=== PATIENT | female | born 1980 | race Caucasian/White ===

== ENCOUNTER → 2018-10-01 10:15 | Outpatient (CLI) | payer OTHER, SELFPAY ==
[2018-10-01 09:36] VITALS: BMI 43.3
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
[2018-10-01 12:25] LABS: Absolute Lymphocyte Count 2.67 X10^3/ul (0.83-4.51); Absolute Neutrophil Count 4.6 X10^3/uL (2.0-7.7); Basophil# 0.02 X10^3/uL; Basophil% 0.3 % (0-1); Eosinophil# 0.13 X10^3/uL; Eosinophils% 1.6 % (0-5); Hematocrit 40.3 % (37-47); Hemoglobin 12.5 g/dl (12.0-15.0); Lymphocyte # 2.67 X10^3/ul (4.0); Lymphocyte % 33.8 % (19-41); Mean Corpuscular Hgb 27.8 pg (27.0-32.0); Mean Corpuscular Volume 89.8 fL (81-99); Mean Platelet Vol. 9.6 fl (6.2-12.0); Monocyte# 0.44 X10^3/uL; Monocyte% 5.6 % (0-10); Neutrophil # 4.64 X10^3/uL (2.7-7.7); Neutrophil % 58.6 % (47-70); Platelet Count 326 K/mm3 (150-450); RBC Distribution Width CV 14.3 % (11.6-14.6); RBC Distribution Width SD 46.6 fl (35.1-43.9); Red Blood Count 4.49 M/mm3 (4.2-5.4); White Blood Count 7.9 K/mm3 (4.4-11.0)
[2018-10-01 12:26] LABS: POSITIVE COUNT NO; POSITIVE DIFFERENTIAL NO; POSITIVE MORPHOLOGY NO
[2018-10-01 12:39] LABS: Albumin, Serum 3.9 g/dL (3.2-5.0); BUN 10 mg/dL (7-18); BUN/Creat Ratio 13.9 RATIO (10-20); Creatinine, Serum 0.72 mg/dL (0.55-1.02); EST Glomerular Filtration Rate 97 mL/min (>60); Est Glom Filt Rate - Afr Amer 117 mL/min (>60); Glucose 105 mg/dL (74-106); Protein, Total 7.4 g/dL (6.4-8.2)
[2018-10-01 12:40] LABS: ALB/GLOB Ratio 1.1 RATIO (0.9-2.4); AST(SGOT) 19 U/L (15-37); Alanine Aminotransfer ALT/SGPT 27 U/L (13-56); Alkaline Phosphatase 72 U/L (45-117); Anion Gap 6 (5-15); Calcium,Total 8.8 mg/dL (8.5-10.1); Chloride 107 mmol/L (98-107); Globulin 3.5 g/dL (2.2-4.2); Potassium 4.5 mmol/L (3.5-5.1); Sodium Level 139 mmol/L (136-145)
[2018-10-01 12:44] LABS: Hemoglobin A1c 6.7 % (4.2-6.3)
[2018-10-01 12:58] LABS: Microalbumin,Random Urine 12.1 mg/L (NO RANGE EST.); Microalbumin:Creatinine Ratio 9.8 mg/g CRE (<30 mg/g CRE)
== END ==
PROVIDERS: Family Provider Internal Medicine; PCP Internal Medicine; Referring Provider Internal Medicine; Visit Provider Internal Medicine
DX: M75.102 Unspecified rotator cuff tear or rupture of left shoulder, not specified as traumatic (principal); E11.9 Type 2 diabetes mellitus without complications
CPT/HCPCS: 36415; 73030; 80053; 82043; 82570; 83036; 85025

== ENCOUNTER → 2018-11-19 15:00 | Outpatient (CLI) | payer OTHER, SELFPAY ==
[2018-11-01 10:59] VITALS: BMI 43.3
[2018-11-24 12:19] LABS: HPV Reflexed? NOT INDICATED
== END ==
PROVIDERS: Family Provider Internal Medicine; PCP Internal Medicine; Referring Provider Obstetrics & Gynecology; Visit Provider Obstetrics & Gynecology
DX: Z12.4 Encounter for screening for malignant neoplasm of cervix (principal)
CPT/HCPCS: 88175; G0145

== ENCOUNTER → 2018-11-25 15:33 | Outpatient (CLI) | payer OTHER, SELFPAY ==
[2018-11-01 10:59] VITALS: BMI 43.3
[2018-11-25 18:05] LABS: hCG Titer Quant., Serum 5511 mIU/mL (1-3)
== END ==
PROVIDERS: Family Provider Internal Medicine; PCP Internal Medicine; Referring Provider Obstetrics & Gynecology; Visit Provider Obstetrics & Gynecology
DX: N91.2 Amenorrhea, unspecified (principal)
CPT/HCPCS: 36415; 84702

== ENCOUNTER → 2018-12-06 | Outpatient (CLI) | payer OTHER, SELFPAY ==
[2018-11-01 10:59] VITALS: BMI 43.3
[2018-12-06 12:32] LABS: Hematocrit 38.7 % (37-47); Hemoglobin 12.5 g/dl (12.0-15.0); Mean Corp Hgb Conc 32.3 g/gl (32-36); Mean Corpuscular Hgb 28.3 pg (27.0-32.0); Mean Corpuscular Volume 87.6 fL (81-99); Mean Platelet Vol. 9.3 fl (6.2-12.0); Platelet Count 301 K/mm3 (150-450); RBC Distribution Width CV 15.2 % (11.6-14.6); RBC Distribution Width SD 48.2 fl (35.1-43.9); Red Blood Count 4.42 M/mm3 (4.2-5.4)
[2018-12-06 12:47] LABS: Scan Indicated on CBC? Y/N NO
[2018-12-06 13:02] LABS: ALB/GLOB Ratio 0.9 RATIO (0.9-2.4); AST(SGOT) 14 U/L (15-37); Alanine Aminotransfer ALT/SGPT 26 U/L (13-56); Albumin, Serum 3.5 g/dL (3.2-5.0); Alkaline Phosphatase 65 U/L (45-117); Anion Gap 9 (5-15); BUN 11 mg/dL (7-18); BUN/Creat Ratio 16.4 RATIO (10-20); Calcium,Total 9.4 mg/dL (8.5-10.1); Chloride 104 mmol/L (98-107); Creatinine, Serum 0.67 mg/dL (0.55-1.02); EST Glomerular Filtration Rate 105 mL/min (>60); Est Glom Filt Rate - Afr Amer 127 mL/min (>60); Globulin 3.9 g/dL (2.2-4.2); Glucose 127 mg/dL (74-106); Potassium 4.1 mmol/L (3.5-5.1); Protein, Total 7.4 g/dL (6.4-8.2); Sodium Level 137 mmol/L (136-145)
[2018-12-06 14:43] LABS: HIV - WCH Non-Reactive (Nonreactive); Rubella IgG > 500.0 IU/mL
[2018-12-07 09:43] LABS: HEPATITIS B SURFACE AG Negative (Negative)
[2018-12-08 16:07] LABS: Chlamydia By Nucleic Acid AMP Negative (Negative)
[2018-12-09 08:35] LABS: Gonococcus By Nucleic Acid AMP Negative (Negative)
[2018-12-10 03:31] LABS: Rapid Plasmin Reagin (RPR) NONREACTIVE (NONREACTIVE)
== END | disposition home or self-care (01) ==
PROVIDERS: Family Provider Internal Medicine; PCP Internal Medicine; Referring Provider Obstetrics & Gynecology; Visit Provider Obstetrics & Gynecology
DX: O09.511 Supervision of elderly primigravida, first trimester (principal); Z11.3 Encounter for screening for infections with a predominantly sexual mode of transmission; Z3A.00 Weeks of gestation of pregnancy not specified
CPT/HCPCS: 36415; 80053; 85027; 86592; 86703; 86762; 86850; 86900; 87086; 87088; 87340; 87491; 87591

== ENCOUNTER → 2018-12-20 08:36 | Outpatient (CLI) | payer OTHER, SELFPAY ==
[2018-12-14 09:45] VITALS: BMI 43.3
[2018-12-20 09:47] LABS: 24 Hour Urine Protein 166.6 mg/24HR (<150 MG/24HR); 24HR. UA Prot. Total Volume 2525 mL; Urine Protein (24 Hour) 6.6 mg/dL (<11.9)
== END ==
PROVIDERS: Family Provider Internal Medicine; PCP Internal Medicine; Referring Provider Obstetrics & Gynecology; Visit Provider Obstetrics & Gynecology
DX: E11.65 Type 2 diabetes mellitus with hyperglycemia (principal); O09.91 Supervision of high risk pregnancy, unspecified, first trimester; O09.521 Supervision of elderly multigravida, first trimester; Z3A.00 Weeks of gestation of pregnancy not specified
CPT/HCPCS: 84156

== ENCOUNTER 2018-12-29 07:58 | Outpatient (RCR) | payer OTHER, SELFPAY ==
[2018-11-01 10:59] VITALS: BMI 43.3
[2018-12-14 09:45] VITALS: BMI 43.3
== END 2019-01-02 23:59 ==
LOC: DC 07:58
PROVIDERS: Family Provider Internal Medicine; PCP Internal Medicine; Visit Provider Obstetrics & Gynecology
DX: O24.111 Pre-existing type 2 diabetes mellitus, in pregnancy, first trimester (principal); E11.65 Type 2 diabetes mellitus with hyperglycemia; Z71.3 Dietary counseling and surveillance
CPT/HCPCS: G0108

== ENCOUNTER → 2018-12-29 11:21 | Outpatient (CLI) | payer OTHER, SELFPAY ==
[2018-12-14 09:45] VITALS: BMI 43.3
[2018-12-29 12:31] LABS: T4 Free Direct 1.12 ng/dL (0.76-1.46); Thyroid Stim Hormone (TSH) 1.58 uIU/mL (0.358-3.74)
== END ==
PROVIDERS: Family Provider Internal Medicine; PCP Internal Medicine; Referring Provider Internal Medicine Endocrinology, Diabetes & Metabolism; Visit Provider Internal Medicine Endocrinology, Diabetes & Metabolism
DX: E11.9 Type 2 diabetes mellitus without complications (principal)
CPT/HCPCS: 36415; 84439; 84443

== ENCOUNTER → 2019-01-21 17:21 | Outpatient (CLI) | payer OTHER, SELFPAY ==
[2018-12-14 09:45] VITALS: BMI 43.3
== END ==
PROVIDERS: Family Provider Internal Medicine; PCP Internal Medicine; Referring Provider Advanced Practice Midwife; Visit Provider Advanced Practice Midwife
DX: O26.851 Spotting complicating pregnancy, first trimester (principal); Z3A.00 Weeks of gestation of pregnancy not specified
CPT/HCPCS: 87086; 87088

== ENCOUNTER 2019-02-01 11:30 | Outpatient (RCR) | payer OTHER, SELFPAY ==
[2018-12-14 09:45] VITALS: BMI 43.3
== END 2019-02-02 23:59 ==
LOC: DC 11:30
PROVIDERS: Family Provider Internal Medicine; PCP Internal Medicine; Referring Provider Obstetrics & Gynecology; Visit Provider Obstetrics & Gynecology
DX: E11.65 Type 2 diabetes mellitus with hyperglycemia (principal); O24.111 Pre-existing type 2 diabetes mellitus, in pregnancy, first trimester; Z71.3 Dietary counseling and surveillance
CPT/HCPCS: 87086; 87088; 97802; 97803; G0108

== ENCOUNTER → 2019-02-08 10:03 | Outpatient (CLI) | payer OTHER, SELFPAY ==
[2019-01-31 09:24] VITALS: BMI 43.3
[2019-02-10 09:07] LABS: AFP MoM Value 1.16 (.); AFP Value-EIA 20.7 ng/mL (.); Comment Report (.); DIA MoM Value 0.49 (.); DIA Value-EIA 58.79 pg/mL (.); DSR (By Age) 163 (.); DSR (Second Trimester) 2682 (.); Gestat. Age Based On As provided (.); Gestational Age 16.2 WEEKS (.); Insulin Dep Diabetes Yes (.); Maternal Age At EDD 37.6 yr (.); hCG MoM 0.61 (.); hCG Value 16572 mIU/mL (.)
== END ==
PROVIDERS: Family Provider Internal Medicine; PCP Internal Medicine; Referring Provider Obstetrics & Gynecology; Visit Provider Obstetrics & Gynecology
DX: O09.522 Supervision of elderly multigravida, second trimester (principal); Z3A.16 16 weeks gestation of pregnancy; O24.312 Unspecified pre-existing diabetes mellitus in pregnancy, second trimester; E11.9 Type 2 diabetes mellitus without complications
CPT/HCPCS: 36415; 82105; 82677; 84702

== ENCOUNTER 2019-03-03 13:30 | Outpatient (RCR) | payer OTHER, SELFPAY ==
[2019-01-31 09:24] VITALS: BMI 43.3
== END 2019-03-05 23:59 ==
LOC: DC 13:30
PROVIDERS: Family Provider Internal Medicine; PCP Internal Medicine; Referring Provider Obstetrics & Gynecology; Visit Provider Obstetrics & Gynecology
DX: E11.65 Type 2 diabetes mellitus with hyperglycemia (principal); O24.111 Pre-existing type 2 diabetes mellitus, in pregnancy, first trimester
CPT/HCPCS: 97803

== ENCOUNTER 2019-03-31 14:00 | Outpatient (RCR) | payer OTHER, SELFPAY ==
[2018-10-01 09:36] VITALS: BMI 43.3
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
--- NOTE | 2018-11-16 08:18 | HP.PTREVAL ---
Anni Castillo MD, It has been my pleasure to treat EYAL ORNELAS over the last 11 visits for L rot cuff repair. Please see the progress note below for an update on the physical therapy plan of care! Subjective: Pt reports she is getting better, but needs more treatment for strength and ROM Objective/Function: L shoulder pain 2-09/12. L shoulder ROM: flex= 115, abd= 97, ER= 45, IR minimally limited. L shoulder MMT: Grossly 4/5 throughout. Pt is progressing well toward Rx goals, but continues to lack strength and ROM Plan Plan: Attempt to get 10 more visits to improve L shoulder ROM and strength Goals Goal 1:: Decrease L shoulder pain x 50% to aid with IADL's Goal Time Frame: 4-6 Weeks Goal Progress: Progressing Goal 2:: Increase L shoulder flex and abd ROM x 40 degrees to aid with overhead activity Goal Time Frame: 4-6 Weeks Goal Progress: Progressing Goal 3:: Increase L shoulder strength x 1 grade to aid with work requirements Goal Time Frame: 4-6 Weeks Goal Progress: Progressing Goal 4:: I with HEP Goal Time Frame: 4-6 Weeks Goal Progress: Progressing Anticipated Interventions Patient/Client Instruction: Educate patient on: Condition, Plan of Care For the Purpose of:: To improve self management Therapeutic Exercise to Include: Strength training, Endurance training, Flexibilty training, Passive ROM, Active ROM, Scapular Strength/Stabilization For the Purpose of:: To decrease pain, To increase ROM, To improve muscle performance and motor function Cryotherapy (ice pack, ice massage): Yes For the Purpose of:: To decrease pain Please do not hesitate to contact me at [phone] by phone or if you have questions or concerns regarding this new plan of care! Sincerely, Sergey Miranda, PT, ATC
--- NOTE | 2019-01-05 10:47 | HP.PTREVAL_ITS ---
Anni Castillo MD, It has been my pleasure to treat EYAL ORNELAS over the last 21 visits for L rot cuff repair (05/18/18). Please see the progress note below for an update on the physical therapy plan of care! Subjective: Pt reports mild pain this date. Pt still c/o being very limited with overhead activity Objective/Function: L shoulder pain: 3/10. L shoulder ROM: flex= 107, abd= 100, ER= 45, IR Min limited. L shoulder MMT: 4/5 throughout and painful. Pt is still very limited with strength and ROM at this timw Plan Plan: Attempt to get 12 more pt visits to focus on functional strength and ROM Goals Goal 1:: Decrease L shoulder pain x 50% to aid with IADL's Goal Time Frame: 4-6 Weeks Goal Progress: Progressing Goal 2:: Increase L shoulder flex and abd ROM x 40 degrees to aid with overhead activity Goal Time Frame: 4-6 Weeks Goal Progress: Progressing Goal 3:: Increase L shoulder strength x 1 grade to aid with work requirements Goal Time Frame: 4-6 Weeks Goal Progress: Progressing Goal 4:: I with HEP Goal Time Frame: 4-6 Weeks Goal Progress: Progressing Anticipated Interventions Patient/Client Instruction: Educate patient on: Condition, Plan of Care For the Purpose of:: To improve self management Therapeutic Exercise to Include: Strength training, Endurance training, Flexibilty training, Passive ROM, Active ROM, Scapular Strength/Stabilization For the Purpose of:: To decrease pain, To increase ROM, To improve muscle pe rformance and motor function Cryotherapy (ice pack, ice massage): Yes For the Purpose of:: To decrease pain Please do not hesitate to contact me at [phone] by phone or if you have questions or concerns regarding this new plan of care! Sincerely, Sergey Miranda, PT, ATC
--- NOTE | 2019-03-09 08:04 | HP.PTREVAL ---
Anni Castillo MD, It has been my pleasure to treat EYAL ORNELAS over the last 32 visits for L rot cuff repair (05/18/18). Please see the progress note below for an update on the physical therapy plan of care! Subjective: Pt reports she is sore today from performing some home repairs over the weekend Objective/Function: L shoulder pain 3/10. L shoulder ROM: flex= 120, abd= 100, ER= 50, IR WNL. L shoulder MMT: ER= 4/5, all other measurements 4+/5 in available range. Pt is progressing well with strength, would benefit with more skilled PT to focus on ROM Plan Plan: Attempt to get 12 more PT visits to focus on ROM Goals Goal 1:: Decrease L shoulder pain x 50% to aid with IADL's Goal Time Frame: 4-6 Weeks Goal Progress: Progressing Goal 2:: Increase L shoulder flex and abd ROM x 40 degrees to aid with overhead activity Goal Time Frame: 4-6 Weeks Goal Progress: Progressing Goal 3:: Increase L shoulder strength x 1 grade to aid with work requirements Goal Time Frame: 4-6 Weeks Goal Progress: Progressing Goal 4:: I with HEP Goal Time Frame: 4-6 Weeks Goal Progress: Progressing Anticipated Interventions Patient/Client Instruction: Educate patient on: Condition, Plan of Care For the Purpose of:: To improve self management Therapeutic Exercise to Include: Strength training, Endurance training, Flexibilty training, Passive ROM, Active ROM, Scapular Strength/Stabilization For the Purpose of:: To decrease pain, To increase ROM, To improve muscle performance and motor function Cryotherapy (ice pack, ice massage): Yes For the Purpose of:: To decrease pain Please do not hesitate to contact me at [phone] by phone or if you have questions or concerns regarding this new plan of care! Sincerely, Sergey Miranda, PT, ATC
== END 2019-03-31 19:00 | disposition home or self-care (01) ==
LOC: PT 14:00
PROVIDERS: Family Provider Internal Medicine; PCP Internal Medicine; Referring Provider Internal Medicine; Visit Provider Internal Medicine
DX: M75.100 Unspecified rotator cuff tear or rupture of unspecified shoulder, not specified as traumatic (principal)
CPT/HCPCS: 97110; 97113; 97140; 97161; 97530

== ENCOUNTER → 2019-04-04 15:47 | Outpatient (CLI) | payer OTHER, SELFPAY ==
[2019-01-31 09:24] VITALS: BMI 43.3
[2019-04-04 17:19] LABS: Hematocrit 33.8 % (37-47); Hemoglobin 10.8 g/dL (12.0-15.0); Mean Corpuscular Volume 90.9 fL (81-99); Mean Platelet Vol. 9.1 fl (6.2-12.0); Platelet Count 322 K/mm3 (150-450); RBC Distribution Width CV 14.8 % (11.6-14.6); RBC Distribution Width SD 48.6 fl (35.1-43.9); Red Blood Count 3.72 M/mm3 (4.2-5.4)
[2019-04-04 17:43] LABS: ALB/GLOB Ratio 0.6 RATIO (0.9-2.4); AST(SGOT) 22 U/L (15-37); Alanine Aminotransfer ALT/SGPT 19 U/L (13-56); Albumin, Serum 2.7 g/dL (3.2-5.0); Alkaline Phosphatase 64 U/L (45-117); Anion Gap 7 (5-15); BUN 8 mg/dL (7-18); BUN/Creat Ratio 13.5 RATIO (10-20); Calcium,Total 9.3 mg/dL (8.5-10.1); Chloride 106 mmol/L (98-107); Creatinine, Serum 0.59 mg/dL (0.55-1.02); EST Glomerular Filtration Rate 121 mL/min (>60); Est Glom Filt Rate - Afr Amer 146 mL/min (>60); Globulin 4.2 g/dL (2.2-4.2); Glucose 233 mg/dL (74-106); Potassium 3.7 mmol/L (3.5-5.1); Protein, Total 6.9 g/dL (6.4-8.2); Protein, Urine (Random) 14.7 mg/dL (<11.9); Protein:Creat Ratio 209 mg/g CRE (0-200); Sodium Level 136 mmol/L (136-145)
== END ==
PROVIDERS: Family Provider Internal Medicine; PCP Internal Medicine; Referring Provider Obstetrics & Gynecology; Visit Provider Obstetrics & Gynecology
DX: O24.311 Unspecified pre-existing diabetes mellitus in pregnancy, first trimester (principal); Z3A.24 24 weeks gestation of pregnancy
CPT/HCPCS: 36415; 80053; 82570; 84156; 85027

== ENCOUNTER 2019-04-06 14:53 | Outpatient (RCR) | payer OTHER, SELFPAY ==
[2019-01-31 09:24] VITALS: BMI 43.3
== END 2019-05-05 23:59 ==
LOC: DC 14:53
PROVIDERS: Family Provider Internal Medicine; PCP Internal Medicine; Referring Provider Obstetrics & Gynecology; Visit Provider Obstetrics & Gynecology
DX: Z71.3 Dietary counseling and surveillance (principal); O24.111 Pre-existing type 2 diabetes mellitus, in pregnancy, first trimester; E11.65 Type 2 diabetes mellitus with hyperglycemia; Z3A.00 Weeks of gestation of pregnancy not specified
CPT/HCPCS: 97803

== ENCOUNTER 2019-04-30 11:25 | Outpatient (CLI) | payer OTHER, SELFPAY ==
[2019-04-25 09:24] VITALS: BMI 43.3
[2019-04-30 12:06] VITALS: BMI 48.4
[2019-04-30 12:33] LABS: Absolute Lymphocyte Count 2.09 X10^3/uL (0.83-4.51); Absolute Neutrophil Count 8.8 X10^3/uL (2.0-7.7); Basophil# 0.03 X10^3/uL; Basophil% 0.3 % (0-1); Eosinophils% 0.8 % (0-5); Hematocrit 32.2 % (37-47); Hemoglobin 10.6 g/dL (12.0-15.0); Lymphocyte # 2.09 X10^3/ul (4.0); Lymphocyte % 17.7 % (19-41); Mean Corp Hgb Conc 32.9 g/dL (32-36); Mean Corpuscular Hgb 28.5 pg (27.0-32.0); Mean Corpuscular Volume 86.6 fL (81-99); Mean Platelet Vol. 8.9 fl (6.2-12.0); Monocyte# 0.66 X10^3/uL; Monocyte% 5.6 % (0-10); NRBC Flagged by Analyzer 0 % (0-5); Neutrophil % 74.8 % (47-70); Platelet Count 287 K/mm3 (150-450); RBC Distribution Width CV 14.6 % (11.6-14.6); RBC Distribution Width SD 46.2 fl (35.1-43.9); Red Blood Count 3.72 M/mm3 (4.2-5.4); White Blood Count 11.8 K/mm3 (4.4-11.0)
--- NOTE | 2019-05-01 11:05 | OB.TRI.HP_ITS ---
- Problem List (1) RLQ abdominal pain Status: Acute History of Present Illness Date of Service: 04/30/19 Was patient seen by the physician?: No Reason For Visit: R/O PRE TERM LABOR Date of Service: 04/30/19 Final HEBER: 06/30/19 Gestational age: 31 Weeks and 3 Days History of Present Illness: at 27w6d who called in with 7/10 RLQ pain. She was seen in the office a few days prior for this pain, and a urine cx was sent and pending and PTL was ruled out. Her pain had worsened so she came to triage for evaluation. RLQ pain that is worse with movements. +Nausea. No vomiting. Good appetite and has been eating well. No fevers or chills. +[place] spotting after having intercourse. No LOF. Good FM. Allergies acetaminophen [From Percocet] Allergy (Unknown, Verified 01/31/19 09:21) Hives oxycodone [From Percocet] Allergy (Unknown, Verified 04/30/19 12:07) Hives tramadol Allergy (Unknown, Verified 04/30/19 12:07) Vomiting MRI Dye Allergy (Unknown, Uncoded 04/30/19 12:07) Hives - Pertinent Past Medical History Medical History: Past Medical History (Last Reviewed 01/31/19 @ 09:23 by Merna Hernandez) Yeast infection involving the vagina and surrounding area (Chronic) Sleep apnea (Chronic) Pneumonia (Resolved) High triglycerides (Chronic) Hypertension (Chronic) Chronic headaches (Chronic) Anxiety (Chronic) Diabetes (Chronic) Bone fracture (Resolved) Surgical History: Past Surgical History (Last Reviewed 01/31/19 @ 09:23 by Merna Hernandez) History of foot surgery 2011 History of rotator cuff surgery 05/2018 Hx of breast reduction, elective 10/2010 Laboratory Studies: Laboratory Tests 04/30/19 Range/Units 12:25 WBC 11.8 H (4.4-11.0) K/mm3 RBC 3.72 L (4.2-5.4) M/mm3 Hgb 10.6 L (12.0-15.0) g/dL Hct 32.2 L (37-47) % MCV 86.6 (81-99) fL MCH 28.5 (27.0-32.0) pg MCHC 32.9 (32-36) g/dL RDW Std Deviation 46.2 H (35.1-43.9) fl RDW Coeff of Sky 14.6 (11.6-14.6) % Plt Count 287 (150-450) K/mm3 MPV 8.9 (6.2-12.0) fl Immature Gran % (Auto) 0.800 (0.0-0.9) % Neut % (Auto) 74.8 H (47-70) % Lymph % (Auto) 17.7 L (19-41) % [place] % (Auto) 5.6 (0-10) % Eos % (Auto) 0.8 (0-5) % Baso % (Auto) 0.3 (0-1) % Absolute Neuts (auto) 8.8 H (2.0-7.7) X10^3/uL Absolute Lymphs (auto) 2.09 (0.83-4.51) X10^3/uL Nucleated RBC % 0 (0-5) % NST - FHR Rate Baby A Baseline: 140 Variability:: Moderate Accelerations:: None Decelerations:: None NST Reactive:: Appropriate for gestational age Uterine Activity:: Irritability with occasional ctx's Impression/Plan - WBC 11.8 and not significantly elevated - Urine cx from office still pending - Cvx closed - Pain likely MSK - To use heat and tylenol prn - NST appropriate for gestational age - To follow up in office
== END 2019-04-30 13:34 | disposition home or self-care (01) ==
LOC: WPOUT 11:33 → OBT 11:34
PROVIDERS: Family Provider Internal Medicine; PCP Internal Medicine; Referring Provider Obstetrics & Gynecology; Visit Provider Obstetrics & Gynecology
DX: O26.892 Other specified pregnancy related conditions, second trimester (principal); R10.31 Right lower quadrant pain; O09.512 Supervision of elderly primigravida, second trimester; O16.2 Unspecified maternal hypertension, second trimester; O24.912 Unspecified diabetes mellitus in pregnancy, second trimester; E11.9 Type 2 diabetes mellitus without complications; O99.342 Other mental disorders complicating pregnancy, second trimester; F41.9 Anxiety disorder, unspecified; O99.352 Diseases of the nervous system complicating pregnancy, second trimester; G43.909 Migraine, unspecified, not intractable, without status migrainosus; Z3A.27 27 weeks gestation of pregnancy; Z79.4 Long term (current) use of insulin; Z79.84 Long term (current) use of oral hypoglycemic drugs; Z79.82 Long term (current) use of aspirin; Z79.899 Other long term (current) drug therapy
CPT/HCPCS: 36415; 59025; 59050; 85025; 99218; G0378

== ENCOUNTER 2019-05-05 11:47 | Outpatient (CLI) | payer OTHER, SELFPAY ==
[2019-05-05 11:47] VITALS: BP 147/75; PULSE 105; RESP 18; TEMP 37.2; O2SAT 98; BMI 48.8
--- NOTE | 2019-05-05 12:11 | CT_ITS ---
STUDY: CT ABDOMEN AND PELVIS WITHOUT CONTRAST REASON FOR EXAM: Female, 38 years old. One week history of right-sided abdominal pain. The patient is 28 weeks the patient was shielded appropriately. RADIATION DOSAGE (If Supplied By Facility): CTDIvol = ( 24.18 ) mGy, DLP = ( 1105.32 ) mGycm TECHNIQUE: Transaxial images were obtained from the dome of the diaphragm to the symphysis pubis without oral contrast, and without intravenous contrast. Sagittal and coronal images were reconstructed. Individualized dose optimization techniques were used for this CT. COMPARISON: None. FINDINGS: The visualized lung bases are unremarkable. The visualized portions of the heart are within normal limits. There is decreased attenuation of the liver consistent with steatosis. Normal gallbladder and extrahepatic biliary system. Normal spleen. Normal pancreas. Normal bilateral adrenal glands. Normal right kidney. Normal left kidney. There is evidence of a left retroaortic renal vein. There is a small hiatal hernia. Normal small intestine. Normal colon. The appendix is visualized and appears normal. Normal abdominal aorta. Normal inferior vena cava. Normal retroperitoneum. Normal urinary bladder. Intrauterine gestation. Normal abdominal wall. Normal osseous structures. CT/Abdomen/Pelvis without Cont IMPRESSION: Normal unenhanced CT of the abdomen and pelvis. Electronically Signed: Arturo Marmolejo, at 13:45 EDT , Service support ,
--- NOTE | 2019-05-05 12:15 | ED.DCSUM_ITS ---
- ER Visit Summary Date of Service: 05/05/19 Chief Complaint: Abdominal pain History of Present Illness: The patient is a 38 F who presents with abdominal pain. Is been ongoing for a week. She has been following up with her PRENATAL GENETIC COUNSELOR and has had multiple visits and they are not clear as to what is causing this. She has been on Macrobid for 4 days but is not helping. She is currently 28 weeks gestation. She is G1, P0. Normal bowel movement this morning. She had one episode of emesis after taking an antibiotic but has had no other nausea vomiting. No urinary symptoms. Her PRENATAL GENETIC COUNSELOR did a white blood cell count a couple of days ago and it was 11.8. She has never had any abdominal surgeries in the past. Physical Examination: Vital signs reviewed. HEENT exam unremarkable. Heart is regular rate and rhythm without murmurs. Lungs are clear to auscultation. Abdomen is soft with tenderness in the right lower quadrant. There is no guarding. Abdomen is gravid appropriate to dates. Extremities reveal no edema. Skin exam normal. Neurologic exam normal. Test Results: [] Emergency Department Course and Treatment: I spoke with her PRENATAL GENETIC COUNSELOR, Dr. Garrison. She states that she has seen this patient 3 times and is unclear the etiology. She discussed the risks of a CAT scan with the patient and they felt that because her pain was so severe that they would be willing to have this done. Laboratories today show white blood cell count of 11.9, hemoglobin 11.2. Electrolytes are unremarkable except for glucose of 171. CAT scan of the abdomen and pelvis is normal. I discussed again with Dr. Garrison and she had no further work-up for this patient as she is perplexed as it was causing this patient's pain. She instructed for the patient to use Tylenol at home. She will call the office for follow-up Treatment Plan: [] Disposition: Discharge Impression: Abdominal pain, third trimester This note was generated with [employer] dictation software. It may contain incorrect words, spelling, and punctuation that were not noted in review of the chart prior to signing ED Disposition - Plan for ED Patient: Referrals: Anni Castillo MD [Primary Care Provider] -
[2019-05-05 12:21] LABS: Absolute Lymphocyte Count 2.01 X10^3/uL (0.83-4.51); Basophil# 0.03 X10^3/uL; Basophil% 0.3 % (0-1); Eosinophil# 0.09 X10^3/uL; Eosinophils% 0.8 % (0-5); Hematocrit 34.6 % (37-47); Hemoglobin 11.2 g/dL (12.0-15.0); Lymphocyte # 2.01 X10^3/ul (4.0); Lymphocyte % 16.8 % (19-41); Mean Corp Hgb Conc 32.4 g/dL (32-36); Mean Corpuscular Hgb 28.1 pg (27.0-32.0); Mean Corpuscular Volume 86.7 fL (81-99); Mean Platelet Vol. 8.8 fl (6.2-12.0); Monocyte# 0.66 X10^3/uL; Monocyte% 5.5 % (0-10); NRBC Flagged by Analyzer 0 % (0-5); Neutrophil # 9.04 X10^3/uL (2.7-7.7); Neutrophil % 75.8 % (47-70); Platelet Count 298 K/mm3 (150-450); RBC Distribution Width CV 14.6 % (11.6-14.6); RBC Distribution Width SD 46.5 fl (35.1-43.9); Red Blood Count 3.99 M/mm3 (4.2-5.4); White Blood Count 11.9 K/mm3 (4.4-11.0)
[2019-05-05 12:44] LABS: ALB/GLOB Ratio 0.6 RATIO (0.9-2.4); AST(SGOT) 15 U/L (15-37); Alanine Aminotransfer ALT/SGPT 18 U/L (13-56); Albumin, Serum 2.6 g/dL (3.2-5.0); Alkaline Phosphatase 75 U/L (45-117); Anion Gap 15 (5-15); BUN 6 mg/dL (7-18); BUN/Creat Ratio 9.3 RATIO (10-20); Chloride 104 mmol/L (98-107); Creatinine, Serum 0.64 mg/dL (0.55-1.02); EST Glomerular Filtration Rate 110 mL/min (>60); Est Glom Filt Rate - Afr Amer 133 mL/min (>60); Estimated Creatinine Clearance 121.41 ml/min; Globulin 4.5 g/dL (2.2-4.2); Glucose 171 mg/dL (74-106); Potassium 3.9 mmol/L (3.5-5.1); Protein, Total 7.1 g/dL (6.4-8.2); Sodium Level 138 mmol/L (136-145)
[2019-05-05 14:54] VITALS: BP 138/96; PULSE 99; RESP 16; TEMP 36.5; O2SAT 96
--- NOTE | 2019-05-05 14:57 | ED.DEP ---
ED Disposition - Plan for ED Patient: Disposition: Home or Assisted Living Instructions: ABDOMINAL PAIN, Unknown Cause, (Female) Referrals: Anni Castillo MD [Primary Care Provider] -
[2019-05-05 15:18] VITALS: BP 147/95; PULSE 98; RESP 16; O2SAT 98
[2019-05-05 22:50] VITALS: BMI 49.4
[2019-05-06 02:00] LABS: Bedside Glucose 226 mg/dL (70-110)
--- NOTE | 2019-05-07 10:36 | OB.TRI.NOTE ---
History of Present Illness Date of Service: 05/05/19 Was patient seen by the physician?: No Reason For Visit: abd pain Date of Service: 05/05/19 Final HEBER: 07/24/19 Gestational age: 28w4d Allergies acetaminophen [From Percocet] Allergy (Unknown, Verified 05/05/19 11:52) Hives oxycodone [From Percocet] Allergy (Unknown, Verified 05/05/19 11:52) Hives tramadol Allergy (Unknown, Verified 05/05/19 11:52) Vomiting morphine Allergy (Verified 05/05/19 11:52) Hives MRI Dye Allergy (Unknown, Uncoded 05/05/19 11:52) Hives - Pertinent Past Medical History Medical History: Past Medical History (Last Reviewed 01/31/19 @ 09:23 by Merna Hernandez) Yeast infection involving the vagina and surrounding area (Chronic) Sleep apnea (Chronic) Pneumonia (Resolved) High triglycerides (Chronic) Hypertension (Chronic) Chronic headaches (Chronic) Anxiety (Chronic) Diabetes (Chronic) Bone fracture (Resolved) Surgical History: Past Surgical History (Last Reviewed 01/31/19 @ 09:23 by Merna Hernandez) History of foot surgery 2011 History of rotator cuff surgery 05/2018 Hx of breast reduction, elective 10/2010 Laboratory Studies: Laboratory Tests 05/05/19 05/05/19 05/05/19 Range/Units 22:28 12:10 12:10 WBC 11.9 H (4.4-11.0) K/mm3 RBC 3.99 L (4.2-5.4) M/mm3 Hgb 11.2 L (12.0-15.0) g/dL Hct 34.6 L (37-47) % MCV 86.7 (81-99) fL MCH 28.1 (27.0-32.0) pg MCHC 32.4 (32-36) g/dL RDW Std Deviation 46.5 H (35.1-43.9) fl RDW Coeff of Sky 14.6 (11.6-14.6) % Plt Count 298 (150-450) K/mm3 MPV 8.8 (6.2-12.0) fl Immature Gran % (Auto) 0.800 (0.0-0.9) % Neut % (Auto) 75.8 H (47-70) % Lymph % (Auto) 16.8 L (19-41) % [place] % (Auto) 5.5 (0-10) % Eos % (Auto) 0.8 (0-5) % Baso % (Auto) 0.3 (0-1) % Absolute Neuts (auto) 9.0 H (2.0-7.7) X10^3/uL Absolute Lymphs (auto) 2.01 (0.83-4.51) X10^3/uL Nucleated RBC % 0 (0-5) % Sodium 138 (136-145) mmol/L Potassium 3.9 (3.5-5.1) mmol/L Chloride 104 (98-107) mmol/L Carbon Dioxide 19.0 L (21.0-32.0) mmol/L Anion Gap 15 (5-15) BUN 6 L (7-18) mg/dL Creatinine 0.64 (0.55-1.02) mg/dL Estim Creat Clear Calc 121.41 ml/min Est GFR (MDRD) Af Amer 133 (>60) mL/min Est GFR (MDRD) Non-Af 110 (>60) mL/min BUN/Creatinine Ratio 9.3 L (10-20) RATIO Glucose 171 H (74-106) mg/dL Calcium 9.0 (8.5-10.1) mg/dL Total Bilirubin 0.30 (0.20-1.00) mg/dL AST 15 (15-37) U/L ALT 18 (13-56) U/L Alkaline Phosphatase 75 (45-117) U/L Total Protein 7.1 (6.4-8.2) g/dL Albumin 2.6 L (3.2-5.0) g/dL Globulin 4.5 H (2.2-4.2) g/dL Albumin/Globulin Ratio 0.6 L (0.9-2.4) RATIO POC Glucose 226 H (70-110) mg/dL Physical Exam Vitals: Vital Signs Temp Pulse Resp BP Pulse Ox 97.7 F L 98 16 147/95 H 98 05/05/19 14:54 05/05/19 15:18 05/05/19 15:18 05/05/19 15:18 05/05/19 15:18 NST - FHR Rate Baby A Baseline: 145 Variability:: Moderate Accelerations:: 10 x 10 Decelerations:: None NST Reactive:: Appropriate for gestational age, Non-Reactive FHR Category:: Category I Uterine Activity:: no ctxs Impression/Plan 38-year-old 1 para 0 at 28 weeks or days, high risk primigravida, advanced maternal age, maternal obesity with BMI of 49, type 2diabetes, and abdominal pain for 1 week. No evidence of obstetrical issues. Patient was released and sent to emergency room for further evaluation.
== END 2019-05-05 22:51 | disposition home or self-care (01) ==
LOC: ED 14:57 → WPOUT 22:15 → ED 05-06 08:30 → WPOUT 05-06 08:35 → OBT 05-06 08:36
PROVIDERS: Emergency Medicine; Emergency Provider Obstetrics & Gynecology; Family Provider Internal Medicine; PCP Internal Medicine; Referring Provider Obstetrics & Gynecology; Visit Provider Obstetrics & Gynecology
DX: O09.513 Supervision of elderly primigravida, third trimester (principal); O16.3 Unspecified maternal hypertension, third trimester; O24.313 Unspecified pre-existing diabetes mellitus in pregnancy, third trimester; E11.9 Type 2 diabetes mellitus without complications; O99.213 Obesity complicating pregnancy, third trimester; E66.9 Obesity, unspecified; Z88.5 Allergy status to narcotic agent; Z88.8 Allergy status to other drugs, medicaments and biological substances; Z3A.28 28 weeks gestation of pregnancy
CPT/HCPCS: 59025; 59050; 74176; 80053; 82962; 85025; 99218; 99284; A4216; G0378

== ENCOUNTER → 2019-05-11 12:10 | Outpatient (CLI) | payer OTHER, SELFPAY ==
[2019-05-09 08:13] VITALS: BMI 49.4
[2019-05-11 12:47] LABS: Hematocrit 33.4 % (37-47); Hemoglobin 10.8 g/dL (12.0-15.0); Mean Corp Hgb Conc 32.3 g/dL (32-36); Mean Corpuscular Hgb 28.5 pg (27.0-32.0); Mean Corpuscular Volume 88.1 fL (81-99); Mean Platelet Vol. 9.1 fl (6.2-12.0); Platelet Count 326 K/mm3 (150-450); RBC Distribution Width CV 14.9 % (11.6-14.6); RBC Distribution Width SD 47.8 fl (35.1-43.9); Red Blood Count 3.79 M/mm3 (4.2-5.4); White Blood Count 12.1 K/mm3 (4.4-11.0)
[2019-05-11 12:54] LABS: Protein, Urine (Random) 17.5 mg/dL (<11.9); Protein:Creat Ratio 186 mg/g CRE (0-200)
[2019-05-11 12:57] LABS: Hemoglobin A1c 6.7 % (4.2-6.3)
[2019-05-11 13:08] LABS: ALB/GLOB Ratio 0.6 RATIO (0.9-2.4); AST(SGOT) 17 U/L (15-37); Alanine Aminotransfer ALT/SGPT 19 U/L (13-56); Albumin, Serum 2.4 g/dL (3.2-5.0); Alkaline Phosphatase 78 U/L (45-117); Anion Gap 11 (5-15); BUN 10 mg/dL (7-18); BUN/Creat Ratio 11.8 RATIO (10-20); Chloride 104 mmol/L (98-107); Creatinine, Serum 0.84 mg/dL (0.55-1.02); EST Glomerular Filtration Rate 80 mL/min (>60); Est Glom Filt Rate - Afr Amer 97 mL/min (>60); Globulin 4.2 g/dL (2.2-4.2); Glucose 225 mg/dL (74-106); Potassium 4.5 mmol/L (3.5-5.1); Protein, Total 6.6 g/dL (6.4-8.2); Sodium Level 136 mmol/L (136-145)
== END ==
PROVIDERS: Family Provider Internal Medicine; PCP Internal Medicine; Referring Provider Obstetrics & Gynecology; Visit Provider Obstetrics & Gynecology
DX: O16.9 Unspecified maternal hypertension, unspecified trimester (principal); Z3A.00 Weeks of gestation of pregnancy not specified
CPT/HCPCS: 36415; 80053; 82570; 83036; 84156; 85027

== ENCOUNTER → 2019-05-12 10:53 | Outpatient (CLI) | payer OTHER, SELFPAY ==
[2019-05-09 08:13] VITALS: BMI 49.4
[2019-05-12 12:06] LABS: T4 Free Direct 0.88 ng/dL (0.76-1.46); Thyroid Stim Hormone (TSH) 1.22 uIU/mL (0.358-3.74)
== END ==
PROVIDERS: Family Provider Internal Medicine; PCP Internal Medicine; Referring Provider Internal Medicine Endocrinology, Diabetes & Metabolism; Visit Provider Internal Medicine Endocrinology, Diabetes & Metabolism
DX: E11.9 Type 2 diabetes mellitus without complications (principal)
CPT/HCPCS: 36415; 84439; 84443

== ENCOUNTER 2019-05-23 09:21 | Outpatient (RCR) | payer OTHER, SELFPAY ==
[2019-05-09 08:13] VITALS: BMI 49.4
== END 2019-06-04 23:59 ==
LOC: DC 09:21
PROVIDERS: Family Provider Internal Medicine; PCP Internal Medicine; Referring Provider Obstetrics & Gynecology; Visit Provider Obstetrics & Gynecology
DX: E11.65 Type 2 diabetes mellitus with hyperglycemia (principal); O24.111 Pre-existing type 2 diabetes mellitus, in pregnancy, first trimester
CPT/HCPCS: 97803

== ENCOUNTER 2019-06-14 09:00 | Outpatient (RCR) | payer OTHER, SELFPAY ==
[2019-05-09 08:13] VITALS: BMI 49.4
[2019-06-07 08:34] VITALS: BMI 49.4
== END 2019-06-14 23:59 | disposition home or self-care (01) ==
LOC: DC 09:00
PROVIDERS: Family Provider Internal Medicine; PCP Internal Medicine; Referring Provider Obstetrics & Gynecology; Visit Provider Obstetrics & Gynecology
DX: O24.111 Pre-existing type 2 diabetes mellitus, in pregnancy, first trimester (principal); E11.65 Type 2 diabetes mellitus with hyperglycemia

== ENCOUNTER → 2019-06-16 10:47 | Outpatient (CLI) | payer OTHER, SELFPAY ==
[2019-06-07 08:34] VITALS: BMI 49.4
[2019-06-16 11:04] LABS: Hematocrit 31.8 % (37-47); Hemoglobin 10.4 g/dL (12.0-15.0); Mean Corp Hgb Conc 32.7 g/dL (32-36); Mean Corpuscular Hgb 28.3 pg (27.0-32.0); Mean Corpuscular Volume 86.6 fL (81-99); Mean Platelet Vol. 9.1 fl (6.2-12.0); Platelet Count 281 K/mm3 (150-450); RBC Distribution Width CV 15.6 % (11.6-14.6); RBC Distribution Width SD 49.1 fl (35.1-43.9); Red Blood Count 3.67 M/mm3 (4.2-5.4); White Blood Count 9.7 K/mm3 (4.4-11.0)
[2019-06-16 11:34] LABS: AST(SGOT) 13 U/L (15-37); Alanine Aminotransfer ALT/SGPT 13 U/L (13-56); BUN 7 mg/dL (7-18); Creatinine, Serum 0.62 mg/dL (0.55-1.02); EST Glomerular Filtration Rate 115 mL/min (>60); Est Glom Filt Rate - Afr Amer 140 mL/min (>60); Uric Acid 5.2 mg/dL (2.6-6.0)
[2019-06-16 11:42] LABS: Creat.Clear Total Volume 3100 mL; Creatinine Clearance 221 ml/min (100-200); Creatinine Serum Creat 0.6 mg/dL (0.6-1.0); Creatinine Urine 63.4 mg/dL (NO RANGE EST.); EST Glomerular Filtration Rate 115 mL/min (>60); Est Glom Filt Rate - Afr Amer 140 mL/min (>60)
[2019-06-17 18:57] LABS: 24HR. UA Prot. Total Volume 3100 mL; Urine Protein (24 Hour) 11.9 mg/dL (<11.9)
[2019-06-21 07:37] LABS: 24 Hour Urine Protein 368.9 mg/24HR (<150 MG/24HR)
== END ==
PROVIDERS: Family Provider Internal Medicine; PCP Internal Medicine; Referring Provider Obstetrics & Gynecology; Visit Provider Obstetrics & Gynecology
DX: O13.9 Gestational [pregnancy-induced] hypertension without significant proteinuria, unspecified trimester (principal); O09.90 Supervision of high risk pregnancy, unspecified, unspecified trimester; Z3A.00 Weeks of gestation of pregnancy not specified
CPT/HCPCS: 36415; 81050; 82565; 82570; 82575; 84156; 84450; 84460; 84520; 84550; 85027

== ENCOUNTER 2019-06-27 12:00 | Outpatient (RCR) | payer OTHER, SELFPAY ==
[2019-01-31 09:24] VITALS: BMI 43.3
--- NOTE | 2019-05-03 11:42 | HP.PTREVAL ---
Anni Castillo MD, It has been my pleasure to treat EYAL ORNELAS over the last 43 visits for L rot cuff repair. Please see the progress note below for an update on the physical therapy plan of care! Subjective: Pt reports she is much better overall, but continues to have functional limitations. Objective/Function: L shoulder pain ranges from 0/10 to 2/10. L shoulder ROM: flex= 130, abd= 92, ER= 45, IR WNL. L shoulder MMT: 4+/5 throughout. Pt is progressing well but still lacks functional ROM in L shoulder Plan Plan: Attempt to get 10 more visits to focus on functional ROM for pt. Goals Goal 1:: Decrease L shoulder pain x 50% to aid with IADL's Goal Time Frame: 4-6 Weeks Goal 2:: Increase L shoulder flex and abd ROM x 40 degrees to aid with overhead activity Goal Time Frame: 4-6 Weeks Goal 3:: Increase L shoulder strength x 1 grade to aid with work requirements Goal Time Frame: 4-6 Weeks Goal 4:: I with HEP Goal Time Frame: 4-6 Weeks Anticipated Interventions Please do not hesitate to contact me at [phone] by phone or if you have questions or concerns regarding this new plan of care! Sincerely, Sergey Miranda, PT, ATC
--- NOTE | 2019-06-27 12:54 | HP.PTDCSUM ---
HP - PT D/C Summary It has been my pleasure to treat EYAL ORNELAS under orders from Anni Castillo MD, for the diagnosis of L rot cuff repair for a total of 54 visit(s). Discharge Date: Please see the following information for a summary of their discharge status. - Subjective Subjective: Pt reports L shoulder is sore today - Pain L shoulder Pain Intensity (Out of 10): 2 - Overall Improvement % Improvement: 85 - Objective Objective/Function: L shoulder pain 1-2/10 constantly. L shoulder ROM: flex= 135, abd= 105, ER= 50, IR WNL. L shoulder strength: 5/5 throughout. Pt is I with HEP. Rx goals achieved - Goals Goal 1:: Decrease L shoulder pain x 50% to aid with IADL's Goal 2:: Increase L shoulder flex and abd ROM x 40 degrees to aid with overhead activity Goal 3:: Increase L shoulder strength x 1 grade to aid with work requirements Goal 4:: I with HEP - Plan Plan: Discharge - D/C Information If there are questions or concerns regarding this patient's physical therapy, please feel free to call me at [phone]. Thank you for the referral of this patient. Sincerely, Sergey Miranda, PT, ATC
== END 2019-06-27 19:00 | disposition home or self-care (01) ==
LOC: PT 12:00
PROVIDERS: Family Provider Internal Medicine; PCP Internal Medicine; Referring Provider Internal Medicine; Visit Provider Internal Medicine
DX: M75.02 Adhesive capsulitis of left shoulder (principal)
CPT/HCPCS: 97110; 97530

== ENCOUNTER 2019-07-04 05:00 | Inpatient (IN) | payer OTHER, SELFPAY ==
[2019-06-07 08:34] VITALS: BMI 49.4
[2019-07-04] VITALS (40 sets, daily range): BP systolic 135–189; BP diastolic 65–94; PULSE 62–83; RESP 16–20; TEMP 36.4–37; O2SAT 95–98; BMI 51.5
[2019-07-04] MEDS: Lactated Ringers 1,000 ML 999 ML IV (05:30)
[2019-07-04 05:51] LABS: Bedside Glucose 96 mg/dL (70-110)
[2019-07-04 06:04] LABS: Absolute Lymphocyte Count 2.15 X10^3/uL (0.83-4.51); Absolute Neutrophil Count 7.4 X10^3/uL (2.0-7.7); Basophil# 0.01 X10^3/uL; Basophil% 0.1 % (0-1); Eosinophil# 0.09 X10^3/uL; Eosinophils% 0.9 % (0-5); Hematocrit 30.3 % (37-47); Hemoglobin 9.7 g/dL (12.0-15.0); Lymphocyte # 2.15 X10^3/ul (4.0); Lymphocyte % 20.8 % (19-41); Mean Corpuscular Hgb 27.6 pg (27.0-32.0); Mean Corpuscular Volume 86.1 fL (81-99); Mean Platelet Vol. 9.7 fl (6.2-12.0); Monocyte# 0.63 X10^3/uL; Monocyte% 6.1 % (0-10); NRBC Flagged by Analyzer 0.2 % (0-5); Neutrophil # 7.41 X10^3/uL (2.7-7.7); Neutrophil % 71.4 % (47-70); Platelet Count 265 K/mm3 (150-450); RBC Distribution Width CV 15.8 % (11.6-14.6); RBC Distribution Width SD 48.4 fl (35.1-43.9); Red Blood Count 3.52 M/mm3 (4.2-5.4); White Blood Count 10.4 K/mm3 (4.4-11.0)
[2019-07-04] MEDS: Lactated Ringers 1,000 ML 150 ML IV (06:29)
--- NOTE | 2019-07-04 07:11 | PCM.HP.OB ---
- Problem List (1) 37 weeks gestation of Status: Acute (2) Primiparous Status: Acute (3) Chronic hypertension Status: Chronic (4) MINNA (obstructive sleep apnea) Status: Acute (5) Advanced maternal age (AMA) in Status: Acute (6) Type 2 diabetes mellitus Status: Chronic History Date of Admission: 07/04/19 Final HEBER: 07/24/19 Gestational age: 37 Weeks and 1 Days History of this : This is a 38 year-old, G 1, P 0, at 37 weeks gestational age who presents for a scheduled section per recommendations from [facility]. Medical History: Medical History (Last Reviewed 01/31/19 @ 09:23 by Merna Hernandez) Yeast infection involving the vagina and surrounding area (Chronic) B37.3 Sleep apnea (Chronic) G47.30 Pneumonia (Resolved) J18.9 High triglycerides (Chronic) E78.1 Hypertension (Chronic) I10 Chronic headaches (Chronic) R51 Anxiety (Chronic) F41.9 Diabetes (Chronic) E11.9 Bone fracture (Resolved) T14.8XXA Surgical History: Surgical History (Last Reviewed 01/31/19 @ 09:23 by Merna Hernandez) History of foot surgery Z98.890 2011 History of rotator cuff surgery Z98.890 05/2018 Hx of breast reduction, elective Z98.890 10/2010 Allergies acetaminophen [From Percocet] Allergy (Unknown, Verified 07/04/19 05:17) Hives oxycodone [From Percocet] Allergy (Unknown, Verified 07/04/19 05:17) Hives tramadol Allergy (Unknown, Verified 07/04/19 05:17) Vomiting morphine Allergy (Verified 07/04/19 05:17) Hives MRI Dye Allergy (Unknown, Uncoded 07/04/19 05:17) Hives Home Medications: Home Medications vitamins no.106-iron 27.5 mg-folate no.6 1 mg-dha capsule 1 cap PO DAILY 12/14/18 aspirin 81 mg tablet,delayed release 81 mg PO DAILY 01/31/19 butalbital-acetaminophen 50 mg-300 mg tablet 1 tab PO .BID PRN tab 04/25/19 cholecalciferol (vitamin D3) 1,000 unit capsule 1,000 unit PO DAILY 04/25/19 hydrocortisone 2.5 % topical ointment 1 applic TOPICAL BID PRN #453.6 g 04/25/19 magnesium 250 mg tablet 250 mg PO DAILY 04/25/19 omeprazole 20 mg capsule,delayed release 20 mg PO DAILY PRN 04/25/19 promethazine 25 mg tablet 25 mg PO Q6H PRN 04/25/19 sumatriptan succinate 100 mg tablet 100 mg PO ONCE PRN tab 04/25/19 vitamin B complex 1 tab PO DAILY 04/25/19 Buspirone HCl 10 mg PO TID 04/30/19 insulin lispro 100 unit/mL subcutaneous pen 10 unit SC QACLUNCH ml 06/07/19 labetalol 100 mg tablet 300 mg PO BID tab 06/07/19 Insulin Glargine,Hum.rec.anlog [Lantus] 54 unit SQ DAILY 07/04/19 Insulin Glargine,Hum.rec.anlog [Lantus] 66 unit SQ DAILY 07/04/19 Smoking Status: Former smoker Number of Fetus(es): 1 NST - FHR Rate Baby A NST Reactive:: Yes FHR Category:: Category I History Past Pregnancies: Past Pregnancies Delivery Date Name GA/ Weeks Outcome Route Wt Infant Sex Labor Length Anesthesia Delivery Location Provider FOB Labs: GBS positive [id number] plus neg Hgb 12.5 Hep B neg RI HIV NR A positive Ab screen neg GC/CT neg RPR NR Review of Systems Constitutional: Denies: Fever Eyes: Denies: Blurred vision HEENT: Denies: Head Aches, Visual Changes Cardiovascular: Denies: Chest Pain Respiratory: Denies: Shortness of Breath Gastrointestinal: Denies: Abdominal Pain Genitourinary: Denies: Dysuria Hematologic/ Lymphatic: Denies: Easy Bruising, Easy Bleeding Assessment/Plan All Active Problems (Last Reviewed 01/31/19 @ 09:23 by Merna Hernandez) RLQ abdominal pain (Acute) 37 weeks gestation of (Acute) Primiparous (Acute) MINNA (obstructive sleep apnea) (Acute) Advanced maternal age (AMA) in (Acute) Pneumonia (Resolved) Bone fracture (Resolved) This is a 38 year-old, G 1, P 0, at 37 weeks gestational age. - Scheduled section per recommendation by MFM - Routine pre-operative care - H/o cHTN and pre-existing diabetes
[2019-07-04] MEDS: Sodium Citrate/Citric Acid 30 ML UDC PO (07:12)
--- NOTE | 2019-07-04 09:37 | OP.PCM_ITS ---
Problem List (1) 37 weeks gestation of Status: Acute (2) Primiparous Status: Acute (3) Chronic hypertension Status: Chronic (4) MINNA (obstructive sleep apnea) Status: Acute (5) Advanced maternal age (AMA) in Status: Acute (6) Type 2 diabetes mellitus Status: Chronic Report of Operation Date of Procedure: 07/04/19 Pre-Operative Diagnosis: 37 week gestation, primiparous, AMA, cHTN, pre-existing diabetes, obesity, desires permanent sterilization Post-Operative Diagnosis: As above Surgery/Procedure Performed:: PLTCS via pfannenstiel incision and BPS Description of Surgical Findings:: Fibroid uterus with multiple anterior fibroids noted. Normal-appearing bilateral fallopian tubes and ovaries. Clear fluid. Intact placenta that was enlarged but otherwise normal-appearing. Viable male in cephalic presentation. Type of Anesthesia:: Spinal Specimen's removed: Placenta, bilateral fallopian tube segments Drains: Crowley Estimated Blood Loss (mL): 1200 mL Description of Procedure: Patient was taken to the operating room where spinal anesthesia was found to be adequate. She was placed in dorsal position with a leftward tilt. She was prepped and draped in the usual sterile fashion. A Pfannenstiel skin incision was made with a scalpel and carried down to the underlying layer of fascia. The fascia was incised in the midline and extended laterally with Ellis scissors. The fascia was dissected off of the rectus muscles using sharp and blunt dissection. The rectus muscles were in the midline. The peritoneum was entered bluntly. Multiple anterior fibroids were noted. The largest fibroid was about 3 to 4 cm in size. A low transverse uterine incision was made. Membranes were ruptured for clear fluid. was in cephalic presentation. The incision was extended to allow for delivery of the . A vacuum was placed once after verbal consent from the patient was obtained, and there was 1 pop off with the vacuum and it was not reapplied. Given the fibroids, size, and patient's obesity there was delay in delivery of the infant. A viable male was delivered atraumatically, and the cord was clamped and cut immediately and the was handed off to nursery staff. Cord gases were obtained. The placenta was removed manually and noted to be normal-appearing with a three-vessel cord. The uterus was cleared of all clot and debris. The uterine incision was repaired in a running locked fashion using Vicryl. Several additional [id number] sutures were placed for hemostasis. The left fallopian tube was identified and followed out to the fimbriated end, and a 2 cm segment of the fallopian tube was removed after suture ligation and transection. The same was performed to the right fallopian tube. The right and left fallopian tube segments were sent to pathology for review. Arrista was placed over the uterine incision. The fascia was closed with PDS in a running fashion. The subcutaneous space was irrigated and made hemostatic with the Bovie cautery. Subcutaneous space was reapproximated with Vicryl in a running fashion. The skin was closed in a subcuticular fashion. A silver dressing was applied over the incision. Instrument counts were correct. The patient was taken to the recovery room in stable condition. Grafts/Implants Used: None - Complications None - Admit VTE Documentation VTE Present on Admission: No VTE Mechan Device Prophylaxis: SCD's VTE Pharm Prophylaxis ordered?: Yes Delivery Classification: Scheduled Gestational age: 37 week gestation Type of Anesthesia:: Spinal Date of Procedure: 07/04/19 Amniotic Membrane Rupture Type: Artificial Amniotic Fluid Description: Clear Drain: Crowley to straight drain Cord Entanglement: None Cord Vessel Description: 3 Vessels Infant Gender: Male (1 minute): 8 (5 minute): 9 Delayed cord clamping: No Pt instructed on risks of surgery: Bleeding, Infection, Permanency, Injury to surrounding structure(s) including bowel and bladder, Availability of other non- permanent control options Complications: None - Admit VTE Documentation VTE Present on Admission: No VTE Mechan Device Prophylaxis: SCD's VTE Pharm Prophylaxis ordered?: Yes
[2019-07-04] MEDS: Oxytocin 30 units/NS 500 ml 30 UNITS/500 ML IV.SOLN 167 UNITS IV (09:42)
--- NOTE | 2019-07-04 10:07 | FALS_PTH ---
PATIENT: EYAL ORNELAS LOC: [facility] U#:[id number] AGE/SX: 38/F ROOM: WP007 RE07/04/[address]: Dr. Kaia Garrison DO : 1980 BED: 1 DIS: 07/08/2019 SPEC #: [id number] RECD: 07/04/19 10:34 STATUS: PAMELA REKelsea #: [id number] ARYAN: 07/04/19 10:[address]: Kaia Garrison DEPT: SURGICAL PATHOLOGY RECD BY: Ryann Aleman ENTERED: 07/04/19 11:14 SP TYPE: FALL TUBES OTHR DR: Dr. Anni Castillo MD Tissues: Fallopian tube Procedures: Surgery Specimen Level II HEADER OPERATION: Tubal ligation PRE-OP DIAGNOSIS: Tubal ligation TISSUE SUBMITTED: Fallopian tubes MICROSCOPIC DIAGNOSIS Right and left fallopian tubes, bilateral partial salpingectomies: Two complete cross-sections of fallopian tubes with no pathologic change. AM:marcy 07/05/19 MICROSCOPIC DESCRIPTION Slides are reviewed. GROSS DESCRIPTION Received is one container labeled with the patient's name and designated bilateral fallopian tubes, suture in left tube. The specimen consists of two fallopian tubes with a suture in the left tube. The right fallopian tube has an average length of 1.5 cm and has an average diameter of 0.6 cm and left fallopian tube has an average length of 1.2 cm and has an average diameter of 0.6 cm. Both fallopian tubes have normal fimbriated ends. No mass lesions are identified. Varnisher Plasticoater sections are submitted in two cassettes as follows: 1 - right fallopian tube, 2 - left fallopian tube. / AM:marcy 07/04/19 TC:4 CPT: 45576 x2
[2019-07-04 10:20] LABS: Bedside Glucose 95 mg/dL (70-110)
--- NOTE | 2019-07-04 10:45 | NURSING ---
Started pumping with a double electric breast pump , IBCLC round. Mother at high risk for delay in lactogenesis due to being type two diabetic, bilateral breast reduction , and chronic hypertension, primary c/s. baby was transferred to [facility] due to macrosomia and hypoglycemia. mother to pump every 3 hours around the clock with hand expression. mother took class.
[2019-07-04] MEDS: Insulin Lispro 100 UNIT/ML INSULN.PEN 7 UNIT SC ×2 (12:17→17:52)
[2019-07-04 12:31] LABS: Bedside Glucose 99 mg/dL (70-110)
[2019-07-04] MEDS: 0.9% Saline Lock 10 ML Syringe IV ×5 (12:35→21:38)
[2019-07-04] MEDS: Lactated Ringers 1,000 ML 100 ML IV (12:47)
[2019-07-04 13:15] LABS: ALB/GLOB Ratio 0.6 RATIO (0.9-2.4); AST(SGOT) 20 U/L (15-37); Alanine Aminotransfer ALT/SGPT 15 U/L (13-56); Albumin, Serum 2.1 g/dL (3.2-5.0); Alkaline Phosphatase 115 U/L (45-117); Anion Gap 8 (5-15); BUN 11 mg/dL (7-18); BUN/Creat Ratio 17.6 RATIO (10-20); Calcium,Total 8.3 mg/dL (8.5-10.1); Chloride 110 mmol/L (98-107); Creatinine, Serum 0.63 mg/dL (0.55-1.02); EST Glomerular Filtration Rate 114 mL/min (>60); Est Glom Filt Rate - Afr Amer 137 mL/min (>60); Estimated Creatinine Clearance 127.77 ml/min; Globulin 3.6 g/dL (2.2-4.2); Glucose 92 mg/dL (74-106); Potassium 4.2 mmol/L (3.5-5.1); Protein, Total 5.7 g/dL (6.4-8.2); Sodium Level 139 mmol/L (136-145)
[2019-07-04] MEDS: Labetalol 200 MG Tablet PO (13:17)
[2019-07-04] MEDS: busPIRone 5 MG Tablet 10 MG PO ×2 (14:28→22:16)
[2019-07-04] MEDS: HYDROcodone Bitartrate/Apap 5/325 Tablet PO ×2 (14:29→22:54)
[2019-07-04] MEDS: NIFEdipine 30 MG Tablet PO (14:38)
--- NOTE | 2019-07-04 14:50 | NURSING ---
patient pumping, unable to straighten arm for this BP
[2019-07-04] MEDS: Ketorolac 30 MG/ML Syringe IV ×2 (15:37→21:37)
[2019-07-04 16:01] LABS: Bedside Glucose 99 mg/dL (70-110)
[2019-07-04] MEDS: hydrALAZINE 20 MG/ML Vial 10 MG IV (16:30)
[2019-07-04 18:21] LABS: Bedside Glucose 82 mg/dL (70-110)
--- NOTE | 2019-07-04 19:42 | NURSING ---
Called Dr. Garrison about patient's blood pressure of 167/82. Verbal order received for 5 mg hydralazine IV ONCE and to recheck BP in 20 mins. Went to administer Hydralazine to patient. Took BP again to enter in SEP. BP 154/74. Notified Dr. Garrison. Verbal order to cancel 5 mg Hydralazine IV ONCE order. Dr. Garrison will be in to assess patient.
--- NOTE | 2019-07-04 20:08 | NURSING ---
Dr. Garrison at bedside to assess patient.
--- NOTE | 2019-07-04 20:14 | NURSING ---
Indwelling gardner catheter present. WNL.
--- NOTE | 2019-07-04 20:23 | PCM.PN.BLA ---
Progress Note At bedside to check on pt. BP's have been severe requiring IV medication. She now states she has RUQ pain. No WHEELER or vision changes. +RUQ tenderness on exam. No hyperreflexia or clonus. Given new elevations in BP's and RUQ pain, discussed with pt concern for pre-eclampsia. Will start mag gtt for seizure prophylaxis. All questions answered. STROKE Vital Signs/Narrative: Vital Signs Temp Pulse Resp BP Pulse Ox 07/04/19 19:57 79 154/74 H 07/04/19 19:36 97.9 F 18 167/82 H 98 07/04/19 17:31 98.0 F 71 18 150/79 H 97 07/04/19 17:16 76 152/77 H 07/04/19 17:01 78 157/77 H 07/04/19 16:46 98.2 F 72 18 158/78 H 98 07/04/19 16:35 170/85 H 07/04/19 16:30 66
[2019-07-04] MEDS: Lactated Ringers 1,000 ML 75 ML IV (21:00)
[2019-07-04] MEDS: Magnesium Sulfate 4gm/100mL 4 GM/100 ML IV.SOLN. IV (21:00)
--- NOTE | 2019-07-04 21:00 | NURSING ---
Lung sounds clear bilaterally. Non labored breathing. Starting magnesium bolus.
[2019-07-04] MEDS: Magnesium Sulfate 20 GM/500 ML BAG IV (21:25)
--- NOTE | 2019-07-04 21:25 | NURSING ---
Magnesium maintenance dose verified with Yasmin Mcghee RN
--- NOTE | 2019-07-04 21:25 | NURSING ---
At 2125, deep tendon reflexes were 1+ diminished for patellar and bicep DTR reflexes bilaterally. The first entry was entered in error as 2+ normal for patellar and bicep DTR bilaterally.
[2019-07-04] MEDS: Enoxaparin 40 MG/0.4 ML Syringe SC (21:35)
[2019-07-04 22:05] LABS: Bedside Glucose 81 mg/dL (70-110)
[2019-07-04 22:15] LABS: Bedside Glucose 76 mg/dL (70-110)
[2019-07-04] MEDS: Labetalol 100 MG Tablet 300 MG PO (22:18)
[2019-07-05] VITALS (26 sets, daily range): BP systolic 123–195; BP diastolic 63–105; PULSE 80–103; RESP 16–20; TEMP 36.2–37.6; O2SAT 94–99
--- NOTE | 2019-07-05 | NURSING ---
Patient sat up at the edge of the bed with assist x2. Tolerated well. Patient requested to ambulate to recliner to sit up and pump. Yenifer care performed. Patient then ambulated to recliner. Gait steady, tolerated well. Patient's blood pressure 195/93 while sitting up in recliner and pumping. Retook blood pressure 165/80. Assisted patient back to bed. Blood pressure then 153/73. Repeat blood pressure 144/73. Patient denies headache or visual changes. SCDs on, seizure precautions maintained. Call light in reach.
[2019-07-05] MEDS: HYDROcodone Bitartrate/Apap 5/325 Tablet PO ×4 (03:11→20:11)
[2019-07-05] MEDS: Ketorolac 30 MG/ML Syringe IV ×4 (03:11→21:10)
[2019-07-05] MEDS: busPIRone 5 MG Tablet 10 MG PO ×3 (06:11→21:10)
[2019-07-05] MEDS: Labetalol 100 MG Tablet 300 MG PO (06:23)
[2019-07-05 06:39] LABS: Hematocrit 29.4 % (37-47); Hemoglobin 9.4 g/dL (12.0-15.0); Mean Corpuscular Hgb 27.6 pg (27.0-32.0); Mean Corpuscular Volume 86.5 fL (81-99); Mean Platelet Vol. 9.8 fl (6.2-12.0); Platelet Count 267 K/mm3 (150-450); RBC Distribution Width CV 15.9 % (11.6-14.6); RBC Distribution Width SD 49.4 fl (35.1-43.9); White Blood Count 12.7 K/mm3 (4.4-11.0)
[2019-07-05 06:46] LABS: Bedside Glucose 79 mg/dL (70-110)
[2019-07-05 06:53] LABS: ALB/GLOB Ratio 0.5 RATIO (0.9-2.4); AST(SGOT) 24 U/L (15-37); Alanine Aminotransfer ALT/SGPT 16 U/L (13-56); Albumin, Serum 1.9 g/dL (3.2-5.0); Alkaline Phosphatase 106 U/L (45-117); Anion Gap 7 (5-15); BUN 9 mg/dL (7-18); BUN/Creat Ratio 17.9 RATIO (10-20); Chloride 108 mmol/L (98-107); EST Glomerular Filtration Rate 146 mL/min (>60); Est Glom Filt Rate - Afr Amer 177 mL/min (>60); Estimated Creatinine Clearance 160.99 ml/min; Globulin 3.9 g/dL (2.2-4.2); Glucose 54 mg/dL (74-106); Protein, Total 5.8 g/dL (6.4-8.2); Sodium Level 140 mmol/L (136-145)
[2019-07-05 06:55] LABS: Bedside Glucose 88 mg/dL (70-110)
[2019-07-05] MEDS: Magnesium Sulfate 20 GM/500 ML BAG IV ×2 (07:59→18:35)
[2019-07-05] MEDS: Senna/Docusate Sodium 1 Tablet PO ×2 (08:56→20:10)
[2019-07-05] MEDS: Enoxaparin 40 MG/0.4 ML Syringe SC ×2 (08:56→21:16)
[2019-07-05] MEDS: Lactated Ringers 1,000 ML 75 ML IV (10:29)
--- NOTE | 2019-07-05 10:50 | PCM.PN.OB ---
Patient Problems: Active and Suspected Problems (Last Reviewed 01/31/19 @ 09:23 by Merna Hernandez) 37 weeks gestation of (Acute) Primiparous (Acute) MINNA (obstructive sleep apnea) (Acute) Advanced maternal age (AMA) in (Acute) Subjective: Pt doing well. Pain controlled. She denies lightheadedness, dizziness, CP, SOB, leg pain, palpitations, nausea, vomiting. Lochia normal. She is pumping. She denies WHEELER, vision changes. She has RUQ pain still but it is improved. - Physical Exam Vitals/I&O's: Vital Signs Temp Pulse Resp BP Pulse Ox 97.2 F L 86 18 145/79 H 98 07/05/19 09:10 07/05/19 09:10 07/05/19 09:10 07/05/19 09:10 07/05/19 09:10 Oxygen Delivery Method Room Air Weight: 348 lb 12.34 oz Body Mass Index (BMI) 51.5 Intake and Output for Last 24 Hours 07/03/19 07/04/19 07/05/19 23:59 23:59 23:59 Intake Total 4561.94 / 4593.19 4277.92 / 4277.92 Output Total 5000 / 5000 6050 / 6050 Balance -438.06 / -406.81 -1772.08 / -1772.08 General: Alert, No apparent distress HEENT: Atraumatic Abdomen: Soft, - - +RUQ tenderness, dressing c/d/i Extremities: No Calf Tenderness Skin: No rashes Neurological: Neuro grossly intact Psych/Mental Status: Normal Affect, Appropriate Laboratory Results 07/04/19 12:13: POC Glucose 99 07/04/19 12:40: Sodium 139, Potassium 4.2, Chloride 110 H, Carbon Dioxide 21.0, Anion Gap 8, BUN 11, Creatinine 0.63, Estim Creat Clear Calc 127.77, Est GFR (MDRD) Af Amer 137, Est GFR (MDRD) Non-Af 114, BUN/Creatinine Ratio 17.6, Glucose 92, Calcium 8.3 L, Total Bilirubin 0.10 L, AST 20, ALT 15, Alkaline Phosphatase 115, Total Protein 5.7 L, Albumin 2.1 L, Globulin 3.6, Albumin/Globulin Ratio 0.6 L 07/04/19 15:45: POC Glucose 99 07/04/19 17:44: POC Glucose 82 07/04/19 20:22: POC Glucose 81 07/04/19 22:09: POC Glucose 76 07/05/19 06:10: WBC 12.7 H, RBC 3.40 L, Hgb 9.4 L, Hct 29.4 L, MCV 86.5, MCH 27.6, MCHC 32.0, RDW Std Deviation 49.4 H, RDW Coeff of Sky 15.9 H, Plt Count 267, MPV 9.8 07/05/19 06:10: Sodium 140, Potassium 4.0, Chloride 108 H, Carbon Dioxide 25.0, Anion Gap 7, BUN 9, Creatinine 0.50 L, Estim Creat Clear Calc 160.99, Est GFR (MDRD) Af Amer 177, Est GFR (MDRD) Non-Af 146, BUN/Creatinine Ratio 17.9, Glucose 54 L, Calcium 8.0 L, Total Bilirubin 0.20, AST 24, ALT 16, Alkaline Phosphatase 106, Total Protein 5.8 L, Albumin 1.9 L, Globulin 3.9, Albumin/Globulin Ratio 0.5 L 07/05/19 06:34: POC Glucose 79 07/05/19 06:50: POC Glucose 88 Current Medications Hydrocodone Bitart/Acetaminophen ([place] 5mg-325mg) 1 tablet PO Q4H PRN PRN PRN Reason: Pain Score 6-10/10 Last Admin: 07/05/19 07:24 Dose: 1 tablet Documented by: Bisacodyl (Dulcolax) 10 mg RECTAL UD PRN PRN Reason: If no BM Buspirone HCl (Buspar) 10 mg PO TID [facility] Last Admin: 07/05/19 06:11 Dose: 10 mg Documented by: Enoxaparin Sodium (Lovenox) 40 mg SC BID@0900,2100 [facility] Last Admin: 07/05/19 08:56 Dose: 40 mg Documented by: Glucagon () 1 mg IM .X1 PRN PRN Reason: Hypoglycemia Glucagon () 1 mg IM .X1 PRN PRN Reason: Hypoglycemia Hydrocortisone (Hytone) 1 applic TOPICAL TID PRN PRN; Protocol PRN Reason: Discomfort Dextrose (Dextrose 10%-Water) 250 mls @ 999 mls/hr IV X1 PRN; Protocol PRN Reason: HYPOGLYCEMIA Naloxone HCl 4 mg/ Dextrose 504 mls @ 0 mls/hr IV .Q0M PRN; Protocol PRN Reason: Respiratory depression Magnesium Sulfate (20gm/500ml) 20 gm in 500 mls @ 50 mls/hr IV .Q10H [facility] Last Infusion: 07/05/19 09:10 Dose: 2 gm/hr, 50 mls/hr Documented by: Lactated Ringer's () 1,000 mls @ 75 mls/hr IV .[id number] [facility] Last Admin: 07/05/19 10:29 Dose: 75 mls/hr Documented by: Ibuprofen (Motrin) 600 mg PO Q6H PRN PRN PRN Reason: Pain Score 1-3/10 Insulin Glargine (Lantus (Bkc)) 26 units SC DAILY [facility] Last Admin: 07/05/19 10:37 Dose: 26 units Documented by: Insulin Glargine (Lantus (Bkc)) 33 units SC DAILY@2200 DANIEL Insulin Glargine (Lantus (Bkc)) 26 units SC QHS DANIEL Insulin Human Lispro (Humalog Kwikpen (Bkc)) 0 unit SC ACHS [facility]; Protocol Last Admin: 07/05/19 07:46 Dose: Not Given Documented by: Insulin Human Lispro (Humalog Kwikpen (Bkc)) 3 unit SC BREAKFAST [facility] Last Admin: 07/05/19 08:49 Dose: Not Given Documented by: Insulin Human Lispro (Humalog Kwikpen (Bkc)) 7 unit SC LUNCH [facility] Last Admin: 07/04/19 12:17 Dose: 7 units Documented by: Insulin Human Lispro (Humalog Kwikpen (Bkc)) 7 unit SC DINNER [facility] Last Admin: 07/04/19 17:52 Dose: 7 unit Documented by: Ketorolac Tromethamine (Toradol) 30 mg IV Q6H [facility] Stop: 07/06/19 10:01 Last Admin: 07/05/19 10:30 Dose: 30 mg Documented by: Labetalol HCl (Trandate) 300 mg PO TID [facility] Last Admin: 07/05/19 06:23 Dose: 300 mg Documented by: Methylergonovine Maleate (Methergine) 0.2 mg IM X1 PRN PRN Reason: Uterine Atony Naloxone HCl (Narcan) 0.02 mg IV Q1M PRN PRN Reason: RR <10 and pt unresponsive Nifedipine (Procardia Xl) 30 mg PO DAILY DANIEL Ondansetron HCl (Zofran) 4 mg IV Q4H PRN PRN PRN Reason: Nausea Prochlorperazine Edisylate (Compazine Iv) 10 mg IV Q6H PRN PRN PRN Reason: NAUSEA Senna/Docusate Sodium (Senokot-S, Yenifer-Colace) 0 tablet PO DAILY PRN PRN Reason: Constipation Last Admin: 07/05/19 08:56 Dose: 2 tablet Documented by: Simethicone (Mylicon) 80 mg PO PCHS PRN PRN Reason: Indigestion/stomach pain Last Admin: 07/05/19 08:56 Dose: 80 mg Documented by: Sodium Chloride () 5 - 15 ml IV UD PRN PRN Reason: SALINE FLUSH Last Admin: 07/04/19 21:38 Dose: 10 ml Documented by: Medical Necessity - Tobacco Use Smoking Status: Former smoker Assessment/Plan All Active Problems (Last Reviewed 01/31/19 @ 09:23 by Merna Hernandez) RLQ abdominal pain (Acute) 37 weeks gestation of (Acute) Primiparous (Acute) MINNA (obstructive sleep apnea) (Acute) Advanced maternal age (AMA) in (Acute) Pneumonia (Resolved) Bone fracture (Resolved) POD#1 s/p PLTCS with BPS - Mag gtt for 24 hrs given newly elevated BP's and RUQ pain yesterday. Labs WNL this AM. BP mild range currently. Continue Labetalol 300mg TID and Procardia 30mg daily. Discussed possibly needing to increase Procardia tomorrow, but will need to see what her BP's are off of mag gtt - Pre-existing diabetes: BG 54 this AM. BG range yesterday 76-99. Will decrease PM Lantus to 26 units from 33 units. To continue Lantus 26 units in AM and 26 units in PM. Humalog 3 units breakfast, 7 units lunch, 7 units dinner. Held morning Humalog today. Will hold if BG < 70. To cover BG > 180 with SSI. Discussed with pt to message or call her animal feeder today so she has close follow up - Otherwise routine post-op care - Baby in special care nursery - Pt attempting pumping - S/p BPS for control - Dispo: Continue current care
[2019-07-05 11:00] LABS: Bedside Glucose 146 mg/dL (70-110)
[2019-07-05] MEDS: Insulin Lispro 100 UNIT/ML INSULN.PEN 7 UNIT SC ×2 (12:02→18:39)
[2019-07-05 12:10] LABS: Bedside Glucose 122 mg/dL (70-110)
[2019-07-05] MEDS: NIFEdipine 30 MG Tablet PO (12:22)
[2019-07-05] MEDS: Labetalol 200 MG Tablet 400 MG PO ×2 (13:43→21:12)
[2019-07-05 15:19] LABS: Pathology Specimen OB SEE PATHOLOGY REPORT
[2019-07-05 15:46] LABS: Bedside Glucose 89 mg/dL (70-110)
[2019-07-05] MEDS: 0.9% Saline Lock 10 ML Syringe IV ×2 (16:31→21:10)
[2019-07-05 18:51] LABS: Bedside Glucose 112 mg/dL (70-110)
[2019-07-05 21:30] LABS: Bedside Glucose 131 mg/dL (70-110)
[2019-07-06] VITALS (7 sets, daily range): BP systolic 132–164; BP diastolic 74–86; PULSE 81–96; RESP 16–18; TEMP 36.7–37.6; O2SAT 96–100
[2019-07-06] MEDS: Ketorolac 30 MG/ML Syringe IV ×2 (03:07→11:38)
[2019-07-06] MEDS: 0.9% Saline Lock 10 ML Syringe IV ×2 (03:07→11:40)
[2019-07-06] MEDS: busPIRone 5 MG Tablet 10 MG PO ×3 (06:05→22:08)
[2019-07-06] MEDS: Labetalol 200 MG Tablet 400 MG PO ×3 (06:05→22:08)
[2019-07-06] MEDS: Enoxaparin 40 MG/0.4 ML Syringe SC ×2 (08:52→22:08)
[2019-07-06] MEDS: HYDROcodone Bitartrate/Apap 5/325 Tablet PO ×2 (08:53→23:46)
[2019-07-06] MEDS: Senna/Docusate Sodium 1 Tablet PO (08:53)
[2019-07-06] MEDS: NIFEdipine 30 MG Tablet PO ×2 (08:54→11:35)
[2019-07-06 09:16] LABS: Bedside Glucose 65 mg/dL (70-110)
[2019-07-06 12:00] LABS: Bedside Glucose 121 mg/dL (70-110)
--- NOTE | 2019-07-06 12:15 | PN.OBGYN_ITS ---
Patient Problems: Active and Suspected Problems (Last Reviewed 01/31/19 @ 09:23 by Merna Hernandez) 37 weeks gestation of (Acute) Primiparous (Acute) MINNA (obstructive sleep apnea) (Acute) Advanced maternal age (AMA) in (Acute) Subjective: Pain well controlled. Average lochia. Has had a bowel movement. Is tolerating regular diet. Working on pumping but has not had any success with breast milk production at this time. Continues to work with on this. Baby is still in special care nursery. Patient denies headache or visual changes or epigastric pain. - Physical Exam Vitals/I&O's: Vital Signs Temp Pulse Resp BP Pulse Ox 98.5 F 84 16 164/80 H 98 07/06/19 11:50 07/06/19 11:50 07/06/19 11:50 07/06/19 11:50 07/06/19 11:50 Oxygen Delivery Method Room Air Weight: 158.2 kg Body Mass Index (BMI) 51.5 Intake and Output for Last 24 Hours 07/04/19 07/05/19 07/06/19 23:59 23:59 23:59 Intake Total 4561.94 / 4593.19 74122.34 / 15880.34 Output Total 5000 / 5000 67356 / 85768 Balance -438.06 / -406.81 -2121.66 / -2121.66 General: Alert, Cooperative, No apparent distress Abdomen: Soft, Non-Distended, Obese, Tender - Appropriately Extremities: Edema - 2+ Skin: Incision - Bandage is clean dry and intact Laboratory Results 07/05/19 15:29: POC Glucose 89 07/05/19 18:39: POC Glucose 112 H 07/05/19 21:09: POC Glucose 131 H 07/06/19 08:47: POC Glucose 65 L 07/06/19 11:31: POC Glucose 121 H Current Medications Hydrocodone Bitart/Acetaminophen ([place] 5mg-325mg) 1 tablet PO Q4H PRN PRN PRN Reason: Pain Score 6-10/10 Last Admin: 07/06/19 08:53 Dose: 1 tablet Documented by: Bisacodyl (Dulcolax) 10 mg RECTAL UD PRN PRN Reason: If no BM Buspirone HCl (Buspar) 10 mg PO TID DANIEL Last Admin: 07/06/19 06:05 Dose: 10 mg Documented by: Enoxaparin Sodium (Lovenox) 40 mg SC BID@0900,2100 [facility] Last Admin: 07/06/19 08:52 Dose: 40 mg Documented by: Glucagon () 1 mg IM .X1 PRN PRN Reason: Hypoglycemia Glucagon () 1 mg IM .X1 PRN PRN Reason: Hypoglycemia Hydrocortisone (Hytone) 1 applic TOPICAL TID PRN PRN; Protocol PRN Reason: Discomfort Dextrose (Dextrose 10%-Water) 250 mls @ 999 mls/hr IV X1 PRN; Protocol PRN Reason: HYPOGLYCEMIA Naloxone HCl 4 mg/ Dextrose 504 mls @ 0 mls/hr IV .Q0M PRN; Protocol PRN Reason: Respiratory depression Ibuprofen (Motrin) 600 mg PO Q6H PRN PRN PRN Reason: Pain Score 1-3/10 Insulin Glargine (Lantus (Bkc)) 20 units SC DAILY [facility] Last Admin: 07/06/19 11:37 Dose: 20 u Documented by: Insulin Glargine (Lantus (Bkc)) 20 units SC QHS [facility] Insulin Human Lispro (Humalog Kwikpen (Bkc)) 0 unit SC ACHS [facility]; Protocol Last Admin: 07/06/19 11:41 Dose: Not Given Documented by: Insulin Human Lispro (Humalog Kwikpen (Bkc)) 3 unit SC BREAKFAST [facility] Last Admin: 07/06/19 08:58 Dose: Not Given Documented by: Insulin Human Lispro (Humalog Kwikpen (Bkc)) 7 unit SC LUNCH [facility] Last Admin: 07/06/19 11:42 Dose: Not Given Documented by: Insulin Human Lispro (Humalog Kwikpen (Bkc)) 7 unit SC DINNER [facility] Last Admin: 07/05/19 18:39 Dose: 7 unit Documented by: Labetalol HCl (Trandate) 400 mg PO TID [facility] Last Admin: 07/06/19 06:05 Dose: 400 mg Documented by: Methylergonovine Maleate (Methergine) 0.2 mg IM X1 PRN PRN Reason: Uterine Atony Naloxone HCl (Narcan) 0.02 mg IV Q1M PRN PRN Reason: RR <10 and pt unresponsive Nifedipine (Procardia Xl) 60 mg PO DAILY DANIEL Ondansetron HCl (Zofran) 4 mg IV Q4H PRN PRN PRN Reason: Nausea Prochlorperazine Edisylate (Compazine Iv) 10 mg IV Q6H PRN PRN PRN Reason: NAUSEA Senna/Docusate Sodium (Senokot-S, Yenifer-Colace) 0 tablet PO DAILY PRN PRN Reason: Constipation Last Admin: 07/06/19 08:53 Dose: 1 tablet Documented by: Simethicone (Mylicon) 80 mg PO PCHS PRN PRN Reason: Indigestion/stomach pain Last Admin: 07/05/19 13:49 Dose: 80 mg Documented by: Sodium Chloride () 5 - 15 ml IV UD PRN PRN Reason: SALINE FLUSH Last Admin: 07/06/19 11:40 Dose: 10 ml Documented by: Medical Necessity - Tobacco Use Smoking Status: Former smoker Assessment/Plan All Active Problems (Last Reviewed 01/31/19 @ 09:23 by Merna Hernandez) RLQ abdominal pain (Acute) 37 weeks gestation of (Acute) Primiparous (Acute) MINNA (obstructive sleep apnea) (Acute) Advanced maternal age (AMA) in (Acute) Pneumonia (Resolved) Bone fracture (Resolved) Postoperative day #2 status post primary section. Pre-existing diabetes, type II. Blood sugars have gone down into the 50s to 60s a couple of times. Will decrease Lantus to 20 mg twice daily, that is what she was on before she was . Continue other medications. Continue diabetic diet. is in the special care nursery. Patient is working on pumping breast milk. We will continue to work with support on this. Hypertension with superimposed preeclampsia. Patient is now off magnesium. No symptoms of preeclampsia. Will increase Procardia to 60 mg a day and continue labetalol 400 mg 3 times daily. Hopefully, we can decrease the labetalol before discharge. 10 you to monitor blood pressures. Due to patient's complicated medical course, she will be inpatient until at least postoperative day #4 on at her blood pressures and make sure they are stable and monitor blood sugars. Acute blood loss anemia superimposed on chronic antepartum anemia. Patient is tolerating well. Will have patient take vitamin and iron.
[2019-07-06 16:55] LABS: Bedside Glucose 135 mg/dL (70-110)
[2019-07-06 17:16] LABS: Bedside Glucose 105 mg/dL (70-110)
[2019-07-06] MEDS: Ibuprofen 600 MG Tablet PO (18:00)
[2019-07-06 20:41] LABS: Bedside Glucose 122 mg/dL (70-110)
[2019-07-06 22:31] LABS: Bedside Glucose 138 mg/dL (70-110)
[2019-07-07 02:47] VITALS: BP 136/76; PULSE 94; RESP 16; TEMP 36.8
[2019-07-07 06:01] VITALS: BP 135/78; PULSE 86; RESP 14
[2019-07-07] MEDS: Labetalol 200 MG Tablet 400 MG PO ×3 (06:02→21:55)
[2019-07-07] MEDS: busPIRone 5 MG Tablet 10 MG PO ×3 (06:02→21:21)
[2019-07-07] MEDS: Ibuprofen 600 MG Tablet PO ×3 (06:02→22:37)
[2019-07-07 06:10] LABS: Bedside Glucose 77 mg/dL (70-110)
[2019-07-07 07:36] LABS: Bedside Glucose 55 mg/dL (70-110)
[2019-07-07 07:36] LABS: Bedside Glucose 53 mg/dL (70-110)
[2019-07-07 07:39] VITALS: BP 130/74; PULSE 85; RESP 18; TEMP 37; O2SAT 97
[2019-07-07] MEDS: Insulin Lispro 100 UNIT/ML INSULN.PEN SC (09:40)
[2019-07-07] MEDS: NIFEdipine 30 MG Tablet 60 MG PO (09:45)
[2019-07-07 09:56] LABS: Bedside Glucose 83 mg/dL (70-110)
[2019-07-07] MEDS: Senna/Docusate Sodium 1 Tablet PO (09:56)
[2019-07-07] MEDS: Enoxaparin 40 MG/0.4 ML Syringe SC ×2 (10:27→22:04)
--- NOTE | 2019-07-07 10:46 | PCM.PN.OB ---
Patient Problems: Active and Suspected Problems (Last Reviewed 01/31/19 @ 09:23 by Merna Hernandez) 37 weeks gestation of (Acute) Primiparous (Acute) MINNA (obstructive sleep apnea) (Acute) Advanced maternal age (AMA) in (Acute) Subjective: Pt doing well. She is not symptomatic with blood sugars currently, and she feels well. Pain controlled. No lightheadedness, CP, SOB, palpitations, leg pain. Normal lochia. Pumping. - Physical Exam Vitals/I&O's: Vital Signs Temp Pulse Resp BP Pulse Ox 98.6 F 85 18 130/74 H 97 07/07/19 07:39 07/07/19 07:39 07/07/19 07:39 07/07/19 07:39 07/07/19 07:39 Oxygen Delivery Method Room Air Weight: 348 lb 12.34 oz Body Mass Index (BMI) 51.5 Intake and Output for Last 24 Hours 07/05/19 07/06/19 07/07/19 23:59 23:59 23:59 Intake Total 69171.34 / 45443.34 Output Total 21933 / 40068 Balance -2121.66 / -2121.66 General: Alert, No apparent distress HEENT: Atraumatic Abdomen: Soft, - - ATTP, obese, silver dressing c/d/i Extremities: No Calf Tenderness, Edema Skin: No rashes Neurological: Neuro grossly intact Psych/Mental Status: Normal Affect, Appropriate Laboratory Results 07/05/19 06:05: POC Glucose 53 L 07/05/19 06:07: POC Glucose 55 L 07/06/19 11:31: POC Glucose 121 H 07/06/19 13:53: POC Glucose 135 H 07/06/19 16:59: POC Glucose 105 07/06/19 20:21: POC Glucose 122 H 07/06/19 22:05: POC Glucose 138 H 07/07/19 06:05: POC Glucose 77 07/07/19 09:37: POC Glucose 83 Current Medications Hydrocodone Bitart/Acetaminophen ([place] 5mg-325mg) 1 tablet PO Q4H PRN PRN PRN Reason: Pain Score 6-10/10 Last Admin: 07/06/19 23:46 Dose: 1 tablet Documented by: Bisacodyl (Dulcolax) 10 mg RECTAL UD PRN PRN Reason: If no BM Buspirone HCl (Buspar) 10 mg PO TID [facility] Last Admin: 07/07/19 06:02 Dose: 10 mg Documented by: Enoxaparin Sodium (Lovenox) 40 mg SC BID@0900,2100 [facility] Last Admin: 07/07/19 10:27 Dose: 40 mg Documented by: Glucagon () 1 mg IM .X1 PRN PRN Reason: Hypoglycemia Glucagon () 1 mg IM .X1 PRN PRN Reason: Hypoglycemia Hydrocortisone (Hytone) 1 applic TOPICAL TID PRN PRN; Protocol PRN Reason: Discomfort Dextrose (Dextrose 10%-Water) 250 mls @ 999 mls/hr IV X1 PRN; Protocol PRN Reason: HYPOGLYCEMIA Naloxone HCl 4 mg/ Dextrose 504 mls @ 0 mls/hr IV .Q0M PRN; Protocol PRN Reason: Respiratory depression Ibuprofen (Motrin) 600 mg PO Q6H PRN PRN PRN Reason: Pain Score 1-3/10 Last Admin: 07/07/19 06:02 Dose: 600 mg Documented by: Insulin Glargine (Lantus (Bkc)) 20 units SC DAILY [facility] Last Admin: 07/07/19 09:41 Dose: 20 u Documented by: Insulin Glargine (Lantus (Bkc)) 20 units SC QHS [facility] Last Admin: 07/06/19 22:10 Dose: 20 units Documented by: Insulin Human Lispro (Humalog Kwikpen (Bkc)) 0 unit SC ACHS [facility]; Protocol Last Admin: 07/07/19 09:41 Dose: Not Given Documented by: Insulin Human Lispro (Humalog Kwikpen (Bkc)) 3 unit SC BREAKFAST [facility] Last Admin: 07/07/19 09:40 Dose: 3 units Documented by: Insulin Human Lispro (Humalog Kwikpen (Bkc)) 7 unit SC LUNCH [facility] Last Admin: 07/06/19 11:42 Dose: Not Given Documented by: Insulin Human Lispro (Humalog Kwikpen (Bkc)) 7 unit SC DINNER [facility] Last Admin: 07/06/19 17:05 Dose: Not Given Documented by: Labetalol HCl (Trandate) 400 mg PO TID [facility] Last Admin: 07/07/19 06:02 Dose: 400 mg Documented by: Methylergonovine Maleate (Methergine) 0.2 mg IM X1 PRN PRN Reason: Uterine Atony Naloxone HCl (Narcan) 0.02 mg IV Q1M PRN PRN Reason: RR <10 and pt unresponsive Nifedipine (Procardia Xl) 60 mg PO DAILY DANIEL Last Admin: 07/07/19 09:45 Dose: 60 mg Documented by: Ondansetron HCl (Zofran) 4 mg IV Q4H PRN PRN PRN Reason: Nausea Prochlorperazine Edisylate (Compazine Iv) 10 mg IV Q6H PRN PRN PRN Reason: NAUSEA Senna/Docusate Sodium (Senokot-S, Yenifer-Colace) 0 tablet PO DAILY PRN PRN Reason: Constipation Last Admin: 07/07/19 09:56 Dose: 2 tablet Documented by: Simethicone (Mylicon) 80 mg PO PCHS PRN PRN Reason: Indigestion/stomach pain Last Admin: 07/05/19 13:49 Dose: 80 mg Documented by: Sodium Chloride () 5 - 15 ml IV UD PRN PRN Reason: SALINE FLUSH Last Admin: 07/06/19 11:40 Dose: 10 ml Documented by: Medical Necessity - Tobacco Use Smoking Status: Former smoker Assessment/Plan All Active Problems (Last Reviewed 01/31/19 @ 09:23 by Merna Hernandez) RLQ abdominal pain (Acute) 37 weeks gestation of (Acute) Primiparous (Acute) MINNA (obstructive sleep apnea) (Acute) Advanced maternal age (AMA) in (Acute) Pneumonia (Resolved) Bone fracture (Resolved) POD#3 s/p PLTCS with BP for AMA, pre-existing type 2 diabetes, cHTN, LGA infant. - Type 2 diabetes: BG are within good range currently. Fasting was 77 this morning. Pt did not receive the ordered fasting acting insulin yesterday. Will continue with current long acting and fasting acting insulin, and continue to monitor today - cHTN with superimposed pre-eclampsia: BP's normal to mild range currently. Will continue scheduled Labetalol and Procardia - Pumping - Dispo: Anticipate discharge tomorrow, as will need to continue to monitor BP's and BG's today. Discussed calling her IM and endo physicians for follow up after discharge of her cHTN and DM - Reviewed blood sugars and blood pressure and plan with publication editor physician Dr. Gonzalez for second opinion
[2019-07-07] MEDS: Insulin Lispro 100 UNIT/ML INSULN.PEN 7 UNIT SC ×2 (12:13→17:43)
[2019-07-07 12:21] LABS: Bedside Glucose 85 mg/dL (70-110)
[2019-07-07 14:37] VITALS: BP 134/80; PULSE 90; RESP 16; TEMP 36.7; O2SAT 98
[2019-07-07 15:01] LABS: Bedside Glucose 109 mg/dL (70-110)
[2019-07-07 17:56] LABS: Bedside Glucose 92 mg/dL (70-110)
[2019-07-07 20:15] LABS: Bedside Glucose 132 mg/dL (70-110)
[2019-07-07 21:24] VITALS: BP 126/84; PULSE 89; RESP 16; TEMP 36.8; O2SAT 99
[2019-07-07 22:15] LABS: Bedside Glucose 111 mg/dL (70-110)
[2019-07-08 02:51] VITALS: BP 150/81; PULSE 81; RESP 18; TEMP 36.6
[2019-07-08 06:15] VITALS: BP 146/74; PULSE 82
[2019-07-08] MEDS: Labetalol 200 MG Tablet 400 MG PO ×2 (06:16→14:20)
[2019-07-08] MEDS: busPIRone 5 MG Tablet 10 MG PO ×2 (06:17→14:20)
[2019-07-08 07:00] LABS: Bedside Glucose 71 mg/dL (70-110)
--- NOTE | 2019-07-08 08:26 | PCM.PN.OB ---
Patient Problems: Active and Suspected Problems (Last Reviewed 01/31/19 @ 09:23 by Merna Hernandez) 37 weeks gestation of (Acute) Primiparous (Acute) MINNA (obstructive sleep apnea) (Acute) Advanced maternal age (AMA) in (Acute) Subjective: Pt doing well. No symptoms of low blood sugar. Pain controlled with motrin. Normal lochia. Pumping. No lightheadedness, dizziness, CP, SOB, leg pain. Tolerating diet without N/V. - Physical Exam Vitals/I&O's: Vital Signs Temp Pulse Resp BP Pulse Ox 97.9 F 82 18 146/74 H 99 07/08/19 02:51 07/08/19 06:15 07/08/19 02:51 07/08/19 06:15 07/07/19 21:24 Oxygen Delivery Method Room Air Weight: 348 lb 12.34 oz Body Mass Index (BMI) 51.5 General: Alert, No apparent distress HEENT: Atraumatic Abdomen: Non-Distended Extremities: Edema Skin: No rashes Neurological: Neuro grossly intact Psych/Mental Status: Normal Affect, Appropriate Laboratory Results 07/07/19 09:37: POC Glucose 83 07/07/19 12:12: POC Glucose 85 07/07/19 14:34: POC Glucose 109 07/07/19 17:41: POC Glucose 92 07/07/19 20:10: POC Glucose 132 H 07/07/19 22:00: POC Glucose 111 H 07/08/19 06:13: POC Glucose 71 Current Medications Hydrocodone Bitart/Acetaminophen ([place] 5mg-325mg) 1 tablet PO Q4H PRN PRN PRN Reason: Pain Score 6-10/10 Last Admin: 07/06/19 23:46 Dose: 1 tablet Documented by: Bisacodyl (Dulcolax) 10 mg RECTAL UD PRN PRN Reason: If no BM Buspirone HCl (Buspar) 10 mg PO TID [facility] Last Admin: 07/08/19 06:17 Dose: 10 mg Documented by: Enoxaparin Sodium (Lovenox) 40 mg SC BID@0900,2100 [facility] Last Admin: 07/07/19 22:04 Dose: 40 mg Documented by: Glucagon () 1 mg IM .X1 PRN PRN Reason: Hypoglycemia Glucagon () 1 mg IM .X1 PRN PRN Reason: Hypoglycemia Hydrocortisone (Hytone) 1 applic TOPICAL TID PRN PRN; Protocol PRN Reason: Discomfort Dextrose (Dextrose 10%-Water) 250 mls @ 999 mls/hr IV X1 PRN; Protocol PRN Reason: HYPOGLYCEMIA Naloxone HCl 4 mg/ Dextrose 504 mls @ 0 mls/hr IV .Q0M PRN; Protocol PRN Reason: Respiratory depression Ibuprofen (Motrin) 600 mg PO Q6H PRN PRN PRN Reason: Pain Score 1-3/10 Last Admin: 07/07/19 22:37 Dose: 600 mg Documented by: Insulin Glargine (Lantus (Bkc)) 20 units SC DAILY [facility] Last Admin: 07/07/19 09:41 Dose: 20 u Documented by: Insulin Glargine (Lantus (Bkc)) 20 units SC QHS [facility] Last Admin: 07/07/19 21:56 Dose: 20 units Documented by: Insulin Human Lispro (Humalog Kwikpen (Bkc)) 0 unit SC ACHS [facility]; Protocol Last Admin: 07/07/19 22:03 Dose: Not Given Documented by: Insulin Human Lispro (Humalog Kwikpen (Bkc)) 3 unit SC BREAKFAST [facility] Last Admin: 07/07/19 09:40 Dose: 3 units Documented by: Insulin Human Lispro (Humalog Kwikpen (Bkc)) 7 unit SC LUNCH [facility] Last Admin: 07/07/19 12:13 Dose: 7 units Documented by: Insulin Human Lispro (Humalog Kwikpen (Bkc)) 7 unit SC DINNER [facility] Last Admin: 07/07/19 17:43 Dose: 7 unit Documented by: Labetalol HCl (Trandate) 400 mg PO TID [facility] Last Admin: 07/08/19 06:16 Dose: 400 mg Documented by: Methylergonovine Maleate (Methergine) 0.2 mg IM X1 PRN PRN Reason: Uterine Atony Naloxone HCl (Narcan) 0.02 mg IV Q1M PRN PRN Reason: RR <10 and pt unresponsive Nifedipine (Procardia Xl) 60 mg PO DAILY [facility] Last Admin: 07/07/19 09:45 Dose: 60 mg Documented by: Ondansetron HCl (Zofran) 4 mg IV Q4H PRN PRN PRN Reason: Nausea Prochlorperazine Edisylate (Compazine Iv) 10 mg IV Q6H PRN PRN PRN Reason: NAUSEA Senna/Docusate Sodium (Senokot-S, Yenifer-Colace) 0 tablet PO DAILY PRN PRN Reason: Constipation Last Admin: 07/07/19 09:56 Dose: 2 tablet Documented by: Simethicone (Mylicon) 80 mg PO PCHS PRN PRN Reason: Indigestion/stomach pain Last Admin: 07/05/19 13:49 Dose: 80 mg Documented by: Sodium Chloride () 5 - 15 ml IV UD PRN PRN Reason: SALINE FLUSH Last Admin: 07/06/19 11:40 Dose: 10 ml Documented by: Medical Necessity - Tobacco Use Smoking Status: Former smoker Assessment/Plan All Active Problems (Last Reviewed 01/31/19 @ 09:23 by Merna Hernandez) RLQ abdominal pain (Acute) 37 weeks gestation of (Acute) Primiparous (Acute) MINNA (obstructive sleep apnea) (Acute) Advanced maternal age (AMA) in (Acute) Pneumonia (Resolved) Bone fracture (Resolved) POD#4 s/p PLTCS with BPS - cHTN w/ superimposed pre-eclampsia: S/p mag gtt. BP normal to mild range. Will d/c home on Labetalol and Procardia. Instructed pt to follow up with her PCP for management as outpatient - Type 2 DM: BG 71-111. Has not needed SSI coverage for BG > 180. No further BG < 70. Review[address] Dr[address] Gonzalez for second opinion and will continue current regimen at home. 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
--- NOTE | 2019-07-08 08:34 | DCINST_ITS ---
Discharge Diet: Carb Control Diet Discharge Activity: May not drive while taking narcotic pain medications., May Shower May resume sexual activity in: 6 weeks Ice area for (Minutes): 20 Weight Bearing Status: Weight bearing as tolerated Lifting Restrictions: No lifting greater than 15-20 pounds Call your doctor if your incision/area has: Increased Pain/ Swelling, Increased Redness, Foul Smelling Discharge, Swelling at the incision site Call your doctor if you observe: Fever of 101 or Higher, Inability to urinate, Inability to have a bowel movement, Using more than one pad per hour, Shortness of breath, Dizziness, Fainting spells, Chest pain, Increased palpitations (irregular heartbeat), Calf discomfort, Uncontrolled pain Suture Line Care: Avoid Pulling/Pushing, Avoid Pinching/Bending Remove Dressing in (days):: 3 Cleanse incision/area with: Soap & Water Instructions: After a Additional Instructions: To take Lantus 20 units in the morning and 20 units at night Humalo units with breakfast, 7 units with lunch, and 7 units with dinner Hold the Humalog for a blood sugar that is less than 70 or if you are symptomatic Check your blood sugar fasting, before meals, 2 hours after meals, and at bedtime If you experience any of the following, contact your healthcare provider. * Bleeding that soaks a pad every hour for 2 hours * Fever 100.4 or higher * Unrelieved incision or abdominal pain * Swelling, redness, discharge or bleeding from your incision or episiotomy site * Your incision begins to separate * Problems urinating (including inability to urinate or burning while urinating). * Visual changes * Severe headache * Flu-like symptoms * Pain or redness in one of both of your breasts * Pain, warmth, tenderness or swelling in your legs, especially the calf area * Frequent nausea and vomiting * Symptoms of depression or anxiety If you experience any of the following, call 911 or go to the nearest Emergency Room. * Chest pain * Problems breathing * Seizure activity * Partial or complete paralysis of a body part, slurred speech, weakness or drooping of the face, or a sudden inability to walk or hold your balance Allergies/Adverse Reactions: Allergies acetaminophen [From Percocet] Allergy (Unknown, Verified 07/04/19 05:17) Hives oxycodone [From Percocet] Allergy (Unknown, Verified 07/04/19 05:17) Hives tramadol Allergy (Unknown, Verified 07/04/19 05:17) Vomiting morphine Allergy (Verified 07/04/19 05:17) Hives MRI Dye Allergy (Unknown, Uncoded 07/04/19 05:17) Hives Medications to take at Discharge vitamins no.106-iron 27.5 mg-folate no.6 1 mg-dha capsule 1 cap PO DAILY 12/14/18 aspirin 81 mg tablet,delayed release 81 mg PO DAILY 01/31/19 butalbital-acetaminophen 50 mg-300 mg tablet 1 tab PO .BID PRN tab 04/25/19 cholecalciferol (vitamin D3) 1,000 unit capsule 1,000 unit PO DAILY 04/25/19 hydrocortisone 2.5 % topical ointment 1 applic TOPICAL BID PRN #453.6 g 04/25/19 magnesium 250 mg tablet 250 mg PO DAILY 04/25/19 omeprazole 20 mg capsule,delayed release 20 mg PO DAILY PRN 04/25/19 promethazine 25 mg tablet 25 mg PO Q6H PRN 04/25/19 sumatriptan succinate 100 mg tablet 100 mg PO ONCE PRN tab 04/25/19 vitamin B complex 1 tab PO DAILY 04/25/19 Buspirone HCl 10 mg PO TID 04/30/19 insulin lispro 100 unit/mL subcutaneous pen 10 unit SC QACLUNCH ml 06/07/19 labetalol 100 mg tablet 300 mg PO BID tab 06/07/19 Insulin Glargine,Hum.rec.anlog [Lantus] 54 unit SQ DAILY 07/04/19 Insulin Glargine,Hum.rec.anlog [Lantus] 66 unit SQ DAILY 07/04/19 Hydrocodone/Acetaminophen [[place] 5-325 Tablet] 1 ea PO Q6H PRN PRN 7 Days #15 tab 07/08/19 Labetalol [Trandate (Beta Alice)] 300 mg PO TID #90 tab 07/08/19 Nifedipine [Procardia Xl] 60 mg PO DAILY #30 tab.er.24 07/08/19 The following prescriptions were given: Hydrocodone/Acetaminophen [[place] 5-325 Tablet] 1 ea PO Q6H PRN PRN 7 Days #15 tab PRN Reason: Pain Score 6-10/10 Prescription Printed Nifedipine [Procardia Xl] 60 mg PO DAILY #30 tab.er.24 Prescription Printed Labetalol [Trandate (Beta Alice)] 300 mg PO TID #90 tab Prescription Printed Follow-Up: Call to make an appointment with your doctor for an incision check in 1-2 weeks. You will also need a 6 week post- follow up appointment. Test results from this visit will be discussed in further detail at your follow- up appointment, if applicable. Please Follow Up With: Kaia Garrison DO When: 1 week Please Follow Up With: Endocrinology and PCP When: 1 week Primary Care Physician: Anni Castillo MD [Primary Care Provider] - Proposed Discharge Date: 07/08/19
[2019-07-08 09:30] VITALS: BP 156/80; PULSE 84; RESP 20; TEMP 37.1; O2SAT 99
[2019-07-08] MEDS: Insulin Lispro 100 UNIT/ML INSULN.PEN SC (09:37)
[2019-07-08] MEDS: NIFEdipine 30 MG Tablet 60 MG PO (09:52)
[2019-07-08 10:00] LABS: Bedside Glucose 91 mg/dL (70-110)
[2019-07-08] MEDS: Enoxaparin 40 MG/0.4 ML Syringe SC (10:49)
[2019-07-08 11:41] LABS: Bedside Glucose 100 mg/dL (70-110)
[2019-07-08] MEDS: Insulin Lispro 100 UNIT/ML INSULN.PEN 7 UNIT SC (12:14)
[2019-07-08 15:12] VITALS: BP 142/73; PULSE 96; RESP 16; TEMP 36.8
[2019-07-08 16:11] LABS: Bedside Glucose 123 mg/dL (70-110)
--- NOTE | 2019-07-14 07:58 | PCM.DC.SUM ---
Discharge Date and Diagnosis Date of Admission: 07/04/19 Date of Discharge: 07/08/19 - Secondary Discharge Diagnosis Chronic Problems (Last Reviewed 01/31/19 @ 09:23 by Merna Hernandez) Chronic hypertension (Chronic) Dermatitis (Chronic) PCOS (polycystic ovarian syndrome) (Chronic) Type 2 diabetes mellitus (Chronic) Rotator cuff tear, left (Chronic) Yeast infection involving the vagina and surrounding area (Chronic) Sleep apnea (Chronic) High triglycerides (Chronic) Hypertension (Chronic) Chronic headaches (Chronic) Anxiety (Chronic) Diabetes (Chronic) Hospital Course and Treatment Operations: - - PLTCS with BPS Summary of Care Provided: The patient is a 38 year old F who presented at 37 weeks gestation for a scheduled primary section per recommendations from maternal- medicine. History of uncontrolled pre-existing diabetes and chronic hypertension. She also desired permanent sterilization after discussion of risks, benefits, and alternative control options. She was 100% certain that she wanted permanent sterilization and it was discussed that this was permanent and irreversible. She had a primary low transverse section with a bilateral partial salpingectomy. See operative note for details. Pre-and postoperatively her blood pressures were elevated. Her blood pressure medication was adjusted postoperatively in order to get her blood pressures under good control. Pre-eclampsia labs were normal during admission. She never had any preeclampsia symptoms either. Her blood sugars were well controlled postoperatively on insulin. Her pain was well controlled, she was ambulating without difficulty, voiding without difficulty, and tolerating regular diet on day of discharge. She was instructed to have close follow-up with her primary care provider as well as endocrinology. She was discharged home in good condition. - Physical Exam Vitals/I&O's: Vital Signs Temp Pulse Resp BP Pulse Ox 98.3 F 96 16 142/73 H 99 07/08/19 15:12 07/08/19 15:12 07/08/19 15:12 07/08/19 15:12 07/08/19 09:30 Oxygen Delivery Method Room Air Weight: 348 lb 12.34 oz Body Mass Index (BMI) 51.5 Discharge Diet: Carb Control Diet Discharge Activity: May not drive while taking narcotic pain medications., May Shower May resume sexual activity in: 6 weeks Ice area for (Minutes): 20 Weight Bearing Status: Weight bearing as tolerated Call your doctor if your incision/area has: Increased Pain/ Swelling, Increased Redness, Foul Smelling Discharge, Swelling at the incision site Call your doctor if you observe: Fever of 101 or Higher, Inability to urinate, Inability to have a bowel movement, Using more than one pad per hour, Shortness of breath, Dizziness, Fainting spells, Chest pain, Increased palpitations (irregular heartbeat), Calf discomfort, Uncontrolled pain Suture Line Care: Avoid Pulling/Pushing, Avoid Pinching/Bending Remove Dressing in (days):: 3 Cleanse incision/area with: Soap & Water Home Medications: Medications to take at Discharge vitamins no.106-iron 27.5 mg-folate no.6 1 mg-dha capsule 1 cap PO DAILY 12/14/18 aspirin 81 mg tablet,delayed release 81 mg PO DAILY 01/31/19 butalbital 50 mg-acetaminophen 300 mg tablet 1 tab PO .BID PRN tab 04/25/19 cholecalciferol (vitamin D3) 25 mcg (1,000 unit) capsule 1,000 unit PO DAILY 04/25/19 hydrocortisone 2.5 % topical ointment 1 applic TOPICAL BID PRN #453.6 g 04/25/19 magnesium 250 mg tablet 250 mg PO DAILY 04/25/19 omeprazole 20 mg capsule,delayed release 20 mg PO DAILY PRN 04/25/19 promethazine 25 mg tablet 25 mg PO Q6H PRN 04/25/19 sumatriptan succinate 100 mg tablet 100 mg PO ONCE PRN tab 04/25/19 vitamin B complex 1 tab PO DAILY 04/25/19 Buspirone HCl 10 mg PO TID 04/30/19 insulin lispro 100 unit/mL subcutaneous pen 10 unit SC QACLUNCH ml 06/07/19 labetalol 100 mg tablet 300 mg PO BID tab 06/07/19 Insulin Glargine,Hum.rec.anlog [Lantus] 54 unit SQ DAILY 07/04/19 Insulin Glargine,Hum.rec.anlog [Lantus] 66 unit SQ DAILY 07/04/19 Hydrocodone/Acetaminophen [[place] 5-325 Tablet] 1 ea PO Q6H PRN PRN 7 Days #15 tab 07/08/19 Labetalol [Trandate (Beta Alice)] 300 mg PO TID #90 tab 07/08/19 Nifedipine [Procardia Xl] 60 mg PO DAILY #30 tab.er.24 07/08/19 Following Prescrptions Were Given to Patient: Hydrocodone/Acetaminophen [[place] 5-325 Tablet] 1 ea PO Q6H PRN PRN 7 Days #15 tab PRN Reason: Pain Score 6-1010 Prescription Printed Nifedipine [Procardia Xl] 60 mg PO DAILY #30 tab.er.24 Prescription Printed Labetalol [Trandate (Beta Alice)] 300 mg PO TID #90 tab Prescription Printed Primary Care Physician: Anni Castillo MD [Primary Care Provider] - Please Follow Up With: Kaia Garrison DO When: 1 week Please Follow Up With: Endocrinology and PCP When: 1 week Patient Instructions: After a Medical Necessity - Tobacco Use Smoking Status: Former smoker Meaningful Use Info Meaningful Use Diagnoses (Choose all that apply): None applicable
== END 2019-07-08 18:20 | disposition home or self-care (01) | DRG 783 ==
PROVIDERS: Admitting Provider Obstetrics & Gynecology; Family Provider Internal Medicine; PCP Internal Medicine; Referring Provider Obstetrics & Gynecology; Visit Provider Obstetrics & Gynecology
PROC: 10D00Z1 Extraction of Products of Conception, Low, Open Approach (ICD-10-PCS; CPT 59514; principal; 2019-07-04 07:15)
DX: O65.5 Obstructed labor due to abnormality of maternal pelvic organs (principal); O24.32 Unspecified pre-existing diabetes mellitus in childbirth; O60.14X0 Preterm labor third trimester with preterm delivery third trimester, not applicable or unspecified; D62 Acute posthemorrhagic anemia; O98.82 Other maternal infectious and parasitic diseases complicating childbirth; O10.92 Unspecified pre-existing hypertension complicating childbirth; O99.02 Anemia complicating childbirth; E11.9 Type 2 diabetes mellitus without complications; Z87.891 Personal history of nicotine dependence; Z3A.37 37 weeks gestation of pregnancy; Z37.0 Single live birth; O34.13 Maternal care for benign tumor of corpus uteri, third trimester; D25.9 Leiomyoma of uterus, unspecified; E28.2 Polycystic ovarian syndrome; L30.9 Dermatitis, unspecified; B37.3 Candidiasis of vulva and vagina; Z79.82 Long term (current) use of aspirin; O99.284 Endocrine, nutritional and metabolic diseases complicating childbirth; E78.1 Pure hyperglyceridemia; O99.72 Diseases of the skin and subcutaneous tissue complicating childbirth; O99.344 Other mental disorders complicating childbirth; F41.9 Anxiety disorder, unspecified; F32.9 Major depressive disorder, single episode, unspecified; Z30.2 Encounter for sterilization; Z79.4 Long term (current) use of insulin
CPT/HCPCS: 80053; 82962; 85025; 85027; 86850; 86900; 86901; 88302; 94762; 99218; 99251; J7120; A4216; G0378; G0463; J2405

== ENCOUNTER 2019-07-12 10:10 | Outpatient (CLI) | payer OTHER, SELFPAY ==
[2019-07-04 05:56] VITALS: BMI 51.5
== END 2019-07-12 11:05 | disposition home or self-care (01) ==
LOC: WPOUT 10:12 → WP 10:13
PROVIDERS: Family Provider Internal Medicine; PCP Internal Medicine; Referring Provider Obstetrics & Gynecology; Visit Provider Obstetrics & Gynecology
DX: Z39.1 Encounter for care and examination of lactating mother (principal)
CPT/HCPCS: 96152

== ENCOUNTER 2020-01-19 17:30 | Outpatient (RCR) | payer OTHER, SELFPAY ==
[2019-12-14 10:18] VITALS: BMI 51.5
--- NOTE | 2019-12-21 09:03 | HP.PTEVAL ---
Patient's Visit Information EYAL ORNELAS is a 39 year old F referred to Physical Therapy by DARVIN Jamison with a diagnosis of R shoulder pain. Date of Evaluation: 12/21/19 Physical Therapist: Sergey Miranda, PT, ATC - Visit Plan Frequency: 2-3x /Week Duration: 4-6 Weeks Plan: R shoulder strengthening (rot cuff), scap stab ex's, UBE, and HEP - Subjective Pt reports he R shoulder has been sore for a very long time. Pt has had PT and dry needling for it in the past which helped, but her pain is back. Pt reports sleep difficulty at this time if she sleeps on her R shoulder. Pt reports she has difficulty with getting dressed at times secondary to R shoulder pain. Pt reports she has had xrays and an MRI in the past which revealed a partial tear of her R rot cuff and bone spurs present. Pt is R hand dominant. No tingling or numbness in R UE. Pt reports she has a 24 week old at home and has to carry him a lot which results in pain. Pt reports her goal is to avoid surgery. 4/10 pain at rest, 9/10 pain at worst (when she is trying to sleep) - Pain R shoulder pain Pain Intensity (Out of 10): 4 Pain Intensity Range: 9 - Objective Neuro: B LE sensation is WNL to light touch. B bicepital reflex= 2/3. Palpation: Pt is very sore along the distribution of the supraspinatus tendon. No obvious deformity at this time. ROM: L shoulder flex= 150, abd= 140, ER= 65, IR WNL; R shoulder flex= 150, abd= 110, ER= 60, IR WNL. MMT: R shoulder flex, IR, and ER 4-/5 and painful. All other B UE MMT 5/5 throughout. Special testing: Pos empty can sign. - Goals Goal 1:: Decrease R shoulder pain x 50% to aid with sleep Goal Time Frame: 4-6 Weeks Goal 2:: Increase R shoulder ROM to equal L shoulder ROM to aid with donning/doffing clothing Goal Time Frame: 4-6 Weeks Goal 3:: Increase R shoulder strength x 1 grade to aid with IADL's Goal Time Frame: 4-6 Weeks Goal 4:: I with HEP Goal Time Frame: 4-6 Weeks - Rehabilitation Potential Physical Therapy Diagnosis: Pt has R shoulder pain, weakness, and limited ROM secondary to R shoulder rot cuff syndrome. Rehabilitation Potential: Good - Anticipated Interventions Patient/Client Instruction: Educate patient on: Condition, Plan of Care For the Purpose of:: To improve self management Therapeutic Exercise to Include: Strength training, Endurance training, Active ROM, Scapular Strength/Stabilization For the Purpose of:: To decrease pain, To increase ROM, To improve muscle performance and motor function Cryotherapy (ice pack, ice massage): Yes For the Purpose of:: To decrease pain Thank you for the opportunity to evaluate your patient. For Medicare and Medicare HMO plans, please review the plan of care and approve it. It will need to be FAXED BACK to us at [phone] for Medicare purposes. For Medicare only, by signing this I certify the plan of care. Please let me know if there are questions or concerns regarding this plan of care. Physician Signature: Date:
--- NOTE | 2020-01-19 18:09 | HP.PTREVAL_ITS ---
Ravinder Cornell, SCREEN VENT BINDER-C, It has been my pleasure to treat EYAL ORNELAS over the last 8 visits for R shoulder pain. Please see the progress note below for an update on the physical therapy plan of care! Subjective: My shoulder is really sore today Objective/Function: R shoulder pain ranges from 5-7/10. R shoulder ROM: flex= 130, abd= 85, ER= 30, IR min limited. R shoulder MMT: 3/5 and painful Plan Plan: Hold therapy, and RTD Goals Goal 1:: Decrease R shoulder pain x 50% to aid with sleep Goal Time Frame: 4-6 Weeks Goal Progress: Not Progressing Goal 2:: Increase R shoulder ROM to equal L shoulder ROM to aid with donning/doffing clothing Goal Time Frame: 4-6 Weeks Goal Progress: Not Progressing Goal 3:: Increase R shoulder strength x 1 grade to aid with IADL's Goal Time Frame: 4-6 Weeks Goal Progress: Not Progressing Goal 4:: I with HEP Goal Time Frame: 4-6 Weeks Anticipated Interventions Patient/Client Instruction: Educate patient on: Condition, Plan of Care For the Purpose of:: To improve self management Therapeutic Exercise to Include: Strength training, Endurance training, Active ROM, Scapular Strength/Stabilization For the Purpose of:: To decrease pain, To increase ROM, To improve muscle performance and motor function Cryotherapy (ice pack, ice massage): Yes For the Purpose of:: To decrease pain Please do not hesitate to contact me at [phone] by phone or if you have questions or concerns regarding this new plan of care! Sincerely, Sergey Miranda, PT, ATC
--- NOTE | 2020-03-07 12:31 | HP.PT.NRP ---
EYAL ORNELAS was seen in my office for initial evaluation on 12/21/19. The following Plan of Care was established for this patient: Initial Frequency: 2-3x /Week Initial Duration: 4-6 Weeks Patient/Client Instruction: Educate patient on: Condition, Plan of Care For the Purpose of:: To improve self management Therapeutic Exercise to Include: Strength training, Endurance training, Active ROM, Scapular Strength/Stabilization For the Purpose of:: To decrease pain, To increase ROM, To improve muscle performance and motor function Cryotherapy (ice pack, ice massage): Yes For the Purpose of:: To decrease pain This patient was last seen in our office . Pertinent comments regarding their Physical therapy will appear below: Pt was treated for 8 PT visits for R shoulder pain through 01/19/20. Pt has not returned through todays date and is discontinued at this time. At this point I will be discontinuing this patient from physical therapy. I would be happy to see this patient again in the future if found appropriate by the physician. Thank you! Sergey Miranda, PT, ATC
== END 2020-01-19 19:00 | disposition home or self-care (01) ==
LOC: PT 17:30
PROVIDERS: PCP Internal Medicine; Referring Provider Nurse Practitioner Family; Visit Provider Nurse Practitioner Family
DX: M67.911 Unspecified disorder of synovium and tendon, right shoulder (principal)
CPT/HCPCS: 97110; 97161; 97164

== ENCOUNTER → 2020-02-09 09:42 | Outpatient (CLI) | payer OTHER, SELFPAY ==
[2020-02-09 09:32] VITALS: BMI 46.3
--- NOTE | 2020-02-09 09:45 | RAD_ITS ---
STUDY: X-RAY - RIGHT SHOULDER REASON FOR EXAM: Pain, no specific injury. TECHNIQUE: 4 view(s) of the shoulder. COMPARISON: None. FINDINGS: Normal glenohumeral articulation. There is mild acromioclavicular arthrosis with small undersurface osteophytes. Normal acromion. Normal humeral head and visualized proximal humerus. The soft tissue structures are unremarkable. Normal visualized pulmonary apex. RAD/Shoulder min 2 Views IMPRESSION: Mild acromioclavicular arthrosis. Electronically Signed: Caleb Coleman MD at 10:20 EDT Tel , Service support ,
== END ==
PROVIDERS: PCP Internal Medicine; Referring Provider Orthopaedic Surgery; Visit Provider Orthopaedic Surgery
DX: M25.511 Pain in right shoulder (principal)
CPT/HCPCS: 73030

== ENCOUNTER → 2020-02-14 12:27 | Outpatient (CLI) | payer OTHER, SELFPAY ==
[2020-02-09 09:32] VITALS: BMI 46.3
--- NOTE | 2020-02-14 12:29 | MRI_ITS ---
STUDY: MRI RIGHT SHOULDER REASON FOR EXAM: Right shoulder pain, no specific injury. TECHNIQUE: Standardized fat and water weighted pulse sequences were obtained in all 3 orthogonal planes. COMPARISON: Radiographs 02/09/2020. FINDINGS: There is mild supraspinatus tendinosis and a small high-grade partial thickness tear of the articular surface of the distal anterior supraspinatus tendon at the greater tuberosity insertion (T2 coronal image 14) measuring 0.25 cm in length with mild delamination (T2 coronal images 11-13). Normal infraspinatus tendon. Normal subscapularis tendon. Normal teres minor tendon. Normal supraspinatus muscle. Normal infraspinatus muscle. Normal subscapularis muscle. Normal teres minor muscle. Normal glenohumeral articulation. There is very mild cystic change of the greater tuberosity. Normal biceps labral complex. Normal intracapsular long biceps tendon. There is a small ganglion cyst of the bicipital tendon sheath (T2 coronal images 8-11) measuring approximately 1.1 cm in mediolateral dimension. Normal labrum. Normal capsulo- ligamentous complex. There is acromioclavicular arthrosis with mild capsular thickening effacing the subacromial fat (T2 sagittal image 16). There is a Type III morphology (anterior hook) (T2 sagittal image 12), with a neutral orientation. There is no subacromial-subdeltoid bursal fluid. Normal visualized coracohumeral and coracoacromial ligaments. There is an axillary lymph node with central fat replacement (T2 coronal images 11-13). Normal deltoid muscle. Normal trapezius muscle. MRI/Upper Ext Joint Only(Routine) IMPRESSION: Small partial-thickness tear and mild tendinosis of the supraspinatus tendon. Acromioclavicular arthrosis. Small ganglion cyst in the bicipital tendon sheath. Electronically Signed: Caleb Coleman MD at 13:43 EDT Tel , Service support ,
== END ==
PROVIDERS: PCP Internal Medicine; Referring Provider Orthopaedic Surgery; Visit Provider Orthopaedic Surgery
DX: M75.81 Other shoulder lesions, right shoulder (principal); M75.21 Bicipital tendinitis, right shoulder; M75.41 Impingement syndrome of right shoulder
CPT/HCPCS: 73221

== ENCOUNTER 2020-03-14 05:54 | Day surgery (SDC) | payer OTHER, SELFPAY ==
[2020-02-16 09:27] VITALS: BMI 46.3
--- NOTE | 2020-03-07 09:04 | EKG12_ITS ---
Test Reason : PRE OP Blood Pressure : / mmHG Vent. Rate : 089 BPM Atrial Rate : 089 BPM P-R Int : 146 ms QRS Dur : 088 ms QT Int : 376 ms P-R-T Axes : 030 033 006 degrees QTc Int : 457 ms Normal sinus rhythm Normal ECG Confirmed by DESMOND MEADE, SAMIA ([id number]), book editor ERWIN MAGDALENO ([id number]) on 03/08/2020 11:00:19 AM Referred By: Quin Ann Confirmed By:SAMIA LOGAN MD
[2020-03-07 09:25] LABS: Hematocrit 41.7 % (37-47); Hemoglobin 13.3 g/dL (12.0-15.0); Mean Corp Hgb Conc 31.9 g/dL (32-36); Mean Corpuscular Hgb 28.2 pg (27.0-32.0); Mean Corpuscular Volume 88.3 fL (81-99); Mean Platelet Vol. 9.1 fl (6.2-12.0); Platelet Count 344 K/mm3 (150-450); RBC Distribution Width CV 14.2 % (11.6-14.6); RBC Distribution Width SD 45.6 fl (35.1-43.9); Red Blood Count 4.72 M/mm3 (4.2-5.4); White Blood Count 10.1 K/mm3 (4.4-11.0)
[2020-03-07 09:46] LABS: Prothrombin Time (Protime)PT. 12.4 SECONDS (11.7-14.9)
[2020-03-07 10:05] LABS: Anion Gap 8 (5-15); BUN 14 mg/dL (7-18); BUN/Creat Ratio 15.2 RATIO (10-20); Calcium,Total 9.2 mg/dL (8.5-10.1); Chloride 105 mmol/L (98-107); Creatinine, Serum 0.92 mg/dL (0.55-1.02); EST Glomerular Filtration Rate 72 mL/min (>60); Est Glom Filt Rate - Afr Amer 87 mL/min (>60); Glucose 205 mg/dL (74-106); Potassium 4.1 mmol/L (3.5-5.1); Sodium Level 135 mmol/L (136-145)
[2020-03-09 09:21] VITALS: BMI 46.8
[2020-03-14] VITALS (9 sets, daily range): BP systolic 110–124; BP diastolic 60–78; PULSE 53–73; RESP 16; TEMP 36.2–36.6; O2SAT 93–98; BMI 45.6
[2020-03-14 06:36] LABS: Bedside Glucose 146 mg/dL (70-110)
[2020-03-14] MEDS: Lactated Ringers 1,000 ML 100 ML IV ×2 (06:39→10:36)
--- NOTE | 2020-03-14 07:52 | PCM.HP.BLA ---
History and Physical I have re-examined the patient. There are no clinical changes since date of exam. Intake Vital Signs 02/16/20 BMI 46.3 Intake Visit Reasons: RIGHT SHOULDER Chief Complaint: right shoulder Is patient in pain?: Yes Allergies acetaminophen [From Percocet] Allergy (Unknown, Verified 01/27/20 10:14) Hives oxycodone [From Percocet] Allergy (Unknown, Verified 01/27/20 10:14) Hives tramadol Allergy (Unknown, Verified 01/27/20 10:14) Vomiting morphine Allergy (Verified 01/27/20 10:14) Hives MRI Dye Allergy (Unknown, Uncoded 01/27/20 10:14) Hives Medications cholecalciferol (vitamin D3) 25 mcg (1,000 unit) capsule 1,000 unit PO DAILY 04/25/19 [History Confirmed 02/16/20] hydrocortisone 2.5 % topical ointment 1 applic TOPICAL BID PRN #453.6 g 04/25/19 [Rx Confirmed 02/16/20] promethazine 25 mg tablet 25 mg PO Q6H PRN 04/25/19 [History Confirmed 02/16/20] sumatriptan succinate 100 mg tablet 100 mg PO ONCE PRN tab 04/25/19 [History Confirmed 02/16/20] nifedipine 60 mg tablet,extended release 24 hr 60 mg PO DAILY #90 tab 07/15/19 [Rx Confirmed 02/16/20] losartan 100 mg tablet 100 mg PO DAILY #90 tab 07/18/19 [Rx Confirmed 02/16/20] buspirone 10 mg tablet 10 mg PO .prn tab 10/17/19 [History Confirmed 02/16/20] empagliflozin 25 mg tablet 25 mg PO DAILY #90 tab 11/11/19 [Rx Confirmed 02/16/20] levonorgestrel 20 mcg/24 hours (5 yrs) 52 mg intrauterine device 1 device INTRAUTERINE ONCE 12/14/19 [History Confirmed 02/16/20] metformin 1,000 mg tablet 1,000 mg PO BID #180 tab 02/03/20 [Rx Confirmed 02/16/20] diazepam 2 mg tablet 2 mg PO TID PRN #3 tab 02/09/20 [Rx Confirmed 02/16/20] PFSH Social History (Updated 02/17/20 @ 16:09 by MAXIMILIANO Cedillo) household members: spouse housing: house pets and animals: Yes (2 large dogs) pets and animals: dog(s) Smoking Status: Never smoker alcohol intake: current alcohol intake frequency: holidays/special occasions only substance use type: does not use what type of physical activity do you participate in: walking, other details: josh frequency: 3-4 times per week HPI RIGHT SHOULDER: Details: Parts of this documentation were recorded by a scribe, this documentation accurately reflects the service provided and the decisions made by me, MAXIMILIANO Cedillo 02/16/20 [id number]. EYAL ORNELAS is a 39 year old F here today for right shoulder pain. F/U after MRI of the shoulder. She states she is having generalized right shoulder pain and she can not lay on her shoulder and she is unable to reach across her chest. She has already completed PT. She is unable to reach behind the back. SHe gets anterior biceps pain with reaching behind the back. We discussed the current risk associated COVID-19. While it is understood that there is a community spread of COVID 19 the risk of brielle COVID-19 while at [facility] is very low, however, the risk cannot be completely mitigated because of the community spread of the disease. We discussed in detail the risk of exposure to and or potential harm posed by the COVID-19 virus with having a surgery/procedure at this time versus the risk of delaying the surgery/procedure. Is not possible to know either the risk of delaying the surgery procedure or chance of getting an infection with perfect accuracy, but a joint decision was made to proceed at this time with a schedule surgery/procedure as indicated on the consent form. Patient was notified that we will need to comply with any screening or testing [facility] wishes to perform or that surgery may be delayed for any positive results. ROS Musc Reports joint pain, Reports joint swelling, Reports limited joint movement, Denies numbness, Reports radiating pain into limb, Denies tingling Skin/Breast Denies redness, Denies lesions, Denies itching, Denies rash, Denies skin swelling Neuro No numbness, No tingling Ortho Exam Right Shoulder Skin/Wound: No ecchymosis, No erythema, No swelling Testing: Positive Hawkin's, Neer's, Speed's, TTP Biceps and empty can; negative TTP AC Joint, AROM-Forward Elevation 0-180 (approx 165), AROM-External Rotation at 90 0-60 (approx 50), Sulcus Sign, translation or belly press normal Internal Rotation: Buttock SHOULDER: No acute abnormalities on inspection of the right shoulder. No localized or generalized swelling and no ecchymosis/bruising, erythema, or other skin changes. Patient does show some decreased range of motion most notably with internal rotation. She does have discomfort with passive and active range of motion. She has obvious impingement signs and very evident biceps and probable subscap involvement. Assessment & Plan Problems 1. Chronic right shoulder pain M25.511; G89.29 2. Impingement syndrome of right shoulder M75.41 3. Biceps tendinitis on right M75.21 4. Incomplete tear of right rotator cuff, unspecified whether traumatic M75.111 Plan Patient presents to the office today with right knee pain. Patient has had pain in the knee for many years. She had a previous MRI showing evidence of a rotator cuff tear. The patient has had multiple bouts of formal physical therapy and has tried oral anti-inflammatories. Patient has not had injections as she is a diabetic and is well controlled and is concern for any elevations in her numbers. She has evident signs of rotator cuff impingement as well as biceps involvement. After discussion patient would like to proceed with surgical intervention to include diagnostic arthroscopy with subacromial decompression/acromioplasty, possible rotator cuff debridement/repair, biceps tenotomy versus tenodesis. Risks and benefits of the procedure were discussed with patient all of her questions were answered to her satisfaction. We also did discuss risk for COVID-19 being an in-hospital procedure. Consent was signed in office today. Patient will be notified by our office for surgical days. Patient will also be contacted by the surgery department for preanesthesia testing including COVID-19 testing. Patient was given antimicrobial cleansed to be used the night before the morning of her surgery the base of the neck down to the finger tips including the armpit. Patient can notify our office at any point if she has any concerns or other questions regarding the procedure and/or its recovery time. We did discuss that recovery of treatment really dependent upon type of fixation. Patient states that she probably is not going to want to have a tenodesis as she would rather be able to use her elbow sooner. We discussed that she can think about this and notify even the morning of her surgery. This note was generated with [employer] dictation software. It may contain incorrect words, spelling, and punctuation that were not noted in checking the note before signing. Risk benefits alternatives were discussed patient risk include but not limited to blood loss, blood clot, infection, neurovascular, failure procedure, loss of life and loss of limb. Coding Level of Care Code Off vis,est,level 3 Diagnoses Chronic right shoulder pain M25.511; G89.29 ??Chronicity: chronic Impingement syndrome of right shoulder M75.41 Biceps tendinitis on right M75.21 Incomplete tear of right rotator cuff, unspecified whether traumatic M75.111 ??Rotator cuff tear extent: incomplete ??Rotator cuff tear trauma status: unspecified whether traumatic
--- NOTE | 2020-03-14 07:55 | PCM.DC.ORTHO ---
Discharge Diet: No Restrictions - may remove dressings and apply bandaids to incision sites pod5, may get incision wet pod5, sling at all times unless doing pendulums three times a day, call with increased pain, numbness, or other concerns, follow up i n [address] ann to review images and initiate PT Discharge Activity: May Not Drive May shower in (days): 1 Ice area for (Minutes): 20 - Every hour while awake. Weight Bearing Status: Weight bearing as tolerated Keep extremity elevated above heart level: Operative Extremity Call your doctor if your incision/area has: Continuous Slow Oozing, Sudden Increased Bleeding, Increased Pain/ Swelling, Increased Redness, Foul Smelling Discharge Call your doctor if you observe: Fever of 101 or Higher, Coldness, Increased Pain, Numbness or Tingling, Change in Color, Calf discomfort Allergies/Adverse Reactions: Allergies oxycodone [From Percocet] Allergy (Unknown, Verified 03/14/20 06:20) Hives tramadol Allergy (Unknown, Verified 03/14/20 06:20) Vomiting morphine Allergy (Verified 03/14/20 06:20) Hives MRI Dye Allergy (Unknown, Uncoded 03/14/20 06:20) Hives Medications to take at Discharge cholecalciferol (vitamin D3) 25 mcg (1,000 unit) capsule 1,000 unit PO DAILY 04/25/19 hydrocortisone 2.5 % topical ointment 1 applic TOPICAL BID PRN #453.6 g 04/25/19 promethazine 25 mg tablet 25 mg PO Q6H PRN 04/25/19 sumatriptan succinate 100 mg tablet 100 mg PO ONCE PRN tab 04/25/19 levonorgestrel 20 mcg/24 hours (5 yrs) 52 mg intrauterine device 1 device INTRAUTERINE ONCE 12/14/19 Empagliflozin [Jardiance] 25 mg PO DAILY 03/06/20 Losartan Potassium 50 mg PO DAILY 03/06/20 Metformin HCl 1,000 mg PO BID 03/06/20 Nifedipine [Nifedipine ER] 60 mg PO DAILY 03/06/20 buspirone 10 mg tablet 10 mg PO TID tab 03/09/20 sertraline 50 mg tablet 50 mg PO DAILY #60 tab 03/09/20 Hydrocodone Bitart/Apap 5-325 [[place] 5MG-325MG] 1 - 2 tablet PO Q6H PRN PRN 5 Days #40 tablet 03/14/20 Zolpidem Tartrate [Ambien (Generic)] 5 mg PO QHS PRN PRN #14 tablet 03/14/20 The following prescriptions were given: Zolpidem Tartrate [Ambien (Generic)] 5 mg PO QHS PRN PRN #14 tablet PRN Reason: Insomnia Transmission Status: Sent to [facility] Hydrocodone Bitart/Apap 5-325 [[place] 5MG-325MG] 1 - 2 tablet PO Q6H PRN PRN 5 Days #40 tablet PRN Reason: Pain Transmission Status: Sent to [facility] Primary Care Physician: Anni Castillo MD [Primary Care Provider] - Test Results: Test results from this visit will be discussed in further detail at your follow-up appointment, if applicable. Please Follow Up With: Quin Ann, DO - [phone]
--- NOTE | 2020-03-14 07:56 | PCM.OPRPT ---
Report of Operation Date of Procedure: 03/14/20 Pre-Operative Diagnosis: left shoulder subscapularis tear, impingment syndrome, biceps/labral interface tear Post-Operative Diagnosis: same Surgery/Procedure Performed:: sals, rotator cuff repair, rc debridement, sad/acromioplasty, open subpec biceps tenodesis technology applications engineer: Tito Fulton Type of Anesthesia:: General Anesthesiologist: Ihsan Graves Estimated Blood Loss (mL): min Fluids Replaced: 1000ml lr Description of Procedure: Yes preop note Patient is a 39-year-old female with continued right shoulder pain recalcitrant to conservative treatment options. MRI confirms rotator cuff tendinosis biceps labral tear biceps tendinosis and AC arthritis. Risk benefits alternatives surgery discussed with patient. Risk including but not limited to blood loss, blood clot, infection, neurovascular, failure procedure, loss of life and loss of limb. Patient is aware would like proceed with right shoulder arthroscopy repair as indicated. Operative note Patient seen and examined preop preoperative holding area. Right arm was marked. Patient brought to the operating room placed supine on the operating table. Signed, anesthesia, antibiotics were administered. The right arm was prepped and draped in usual sterile technique with a tourniquet with a after beachchair was positioning. With detention through beachchair position we did recheck her blood pressure which is stable throughout. All bony prominences well-padded and SCDs placed on her bilateral lower extremity. We marked out our bony landmarks for portal placement. We created a posterior portal we insufflated the joint from the posterior aspect of 60 cc we had good return. We then created our posterior portal with 11. Blade. Begin our diagnostic arthroscopy. The glenohumeral joint was unremarkable there is extensive erythema anterior we then created an anterior portal under direct visualization. Brought the proximal biceps tendon further into the joint had red streaking all the way from the intertubercular groove all the way more proximal. We then probed the insertion onto the labrum which was unstable. We then truncated the biceps at its insertion. We used a shaver then to track to clean off any debris as well as cyst trim the labral back to a stable insertion. We probed the subscap the subscap had a slight peel off on the leading edge we did perform a humeral shuck test and posterior translated the humeral humerus and in doing so we did notice that the subscap was partially detached on the superior leading edge. Used a bur to create a footprint we then placed 1 suture tack using fiber links in the leading edge of the subscap and brought it down to bone. We then irrigated the shoulder with copious muscle sterile saline. We looked in the inferior recess there were no loose bodies. The rotator cuff from the articular side was intact there were no tearing was a little bit of debris a little bit of partial tearing maybe about 5% at the insertion on the anterior aspect of the leading edge this was gently debrided back with a shaver. We then moved to the subacromial space. Created a lateral portal under direct visualization. There was extensive bursitis throughout. This was resected with combination of a shaver and and a burst and a burner. We then able to visualize the rotator cuff which was intact and the bursal side as well. We then gently co-planed debrided back the acromion and the anterior lateral edge. Again irrigated the subacromial with copious muscle sterile saline bleeding and coagulating all bleeders. We then moved her open biceps subpectoral tenodesis. We reprepped the area where the allotted 3 minutes. We created about 3 cm 2-1/2 to 3 cm incision starting from the inferior aspect of the pec extending distally. We then use a 15 blade cut through skin tenotomy's dissect down to the pec we did move retracted the pec we able to visualize the biceps biceps tendon was sheath was excised we brought the biceps tendon out of the incision. We then measured appropriate length and cut the distal end of the biceps and sent to pathology for further evaluation. We whipstitched the end of the biceps tendon we then placed the pec button in standard technique from [employer]. We then drilled unicortical he through the proximal humerus in standard technique. We then flipped the button in the humeral canal and then oversewed the tendon down to the periosteum with a free needle. We then irrigated the incision with copious muscle sterile saline. Closed the skin with 3-0 Vicryl and running 4 Monocryl the portals were closed with interrupted 4-0 nylon stitches. Sterile dressings were applied. Patient tolerated procedure well no complication transfer recovery room in stable condition Operative postoperative note May remove sling 3 times a day for pendulums Call with increased pain numbness tingling of issues arise Hospital pharmacy has prescriptions Call with increased call with concerns We will follow-up in 2 weeks We discussed pictures in 2 weeks This note was generated with [employer]save dictation software. It may contain incorrect words, spelling, and punctuation that were not noted in checking the note before signing.
--- NOTE | 2020-03-14 08:00 | TESH_PTH ---
PATIENT: EYAL ORNELAS LOC: [facility] [place] U#:[id number] AGE/SX: 39/F ROOM: RE03/14/[address]: Dr. Quin Ann DO : 1980 BED: DIS: 03/14/2020 SPEC #: [id number] RECD: 03/14/20 10:05 STATUS: PAMELA ISAC #: [id number] ARYAN: 03/14/20 08:[address]: Quin Ann DEPT: SURGICAL PATHOLOGY RECD BY: Ryann Aleman ENTERED: 03/14/20 13:32 SP TYPE: TENDON OTHR DR: Dr. Anni Castillo MD Tissues: Tendon and tendon sheath, NOS Procedures: Surgery Specimen Level III HEADER OPERATION: Arthroscopy, shoulder cuff repair, biceps tenodesis PRE-OP DIAGNOSIS: Chronic right shoulder pain; impingement syndrome right shoulder; biceps tendonitis; incomplete tear of rotator cuff TISSUE SUBMITTED: Right biceps tendon MICROSCOPIC DIAGNOSIS Right biceps tendon: A piece of dense fibroconnective tissue with reactive changes, clinically impingement syndrome right shoulder. JOSE:marcy 03/15/20 MICROSCOPIC DESCRIPTION Slides are reviewed. GROSS DESCRIPTION Received in fixative is one container labeled with the patient's name and designated right biceps tendon. The specimen consists of an elongated fragment of pink-white soft tissue measuring 4 x 1 x 0.5 cm. The specimen is sectioned and totally submitted in one cassette. / AM:marcy 03/14/20 TC:5 CPT: 13925
[2020-03-14] MEDS: Epinephrine (1 mg/ml) 1 MG/ML VIAL (08:28)
[2020-03-14] MEDS: Mupirocin Ointment 22gm Tube 1 APPLIC (09:30)
[2020-03-14] MEDS: Sugammadex Sodium 200 MG/2 ML VIAL IV (09:35)
[2020-03-14] MEDS: Bupiv/Epi 0.25% 30 ML Vial (09:46)
[2020-03-14 10:51] LABS: Bedside Glucose 183 mg/dL (70-110)
[2020-03-14] MEDS: HYDROcodone Bitartrate/Apap 5/325 Tablet PO (11:54)
== END 2020-03-14 13:05 | disposition home or self-care (01) ==
LOC: SDC 05:54 → AC 05:54
PROVIDERS: Anesthesiology; PCP Internal Medicine; Referring Provider Orthopaedic Surgery; Visit Provider Orthopaedic Surgery
PROC: (CPT 29827; principal; 2020-03-14 07:40)
DX: M25.511 Pain in right shoulder (principal); G89.29 Other chronic pain; M75.41 Impingement syndrome of right shoulder; M75.21 Bicipital tendinitis, right shoulder; M75.111 Incomplete rotator cuff tear or rupture of right shoulder, not specified as traumatic; Z79.3 Long term (current) use of hormonal contraceptives; Z79.84 Long term (current) use of oral hypoglycemic drugs; Z88.5 Allergy status to narcotic agent; Z88.8 Allergy status to other drugs, medicaments and biological substances
CPT/HCPCS: 01630; 23130; 23412; 29828; 36415; 80048; 82962; 85027; 85610; 85730; 87635; 88304; 93005; C9803; J7120; J2405; U0003

== ENCOUNTER 2020-09-26 07:00 | Outpatient (RCR) | payer OTHER, SELFPAY ==
[2020-03-26 11:03] VITALS: BMI 45.6
--- NOTE | 2020-03-28 15:49 | HP.PTEVAL_ITS ---
Patient's Visit Information EYAL ORNELAS is a 39 year old F referred to Physical Therapy by MAXIMILIANO Cedillo with a diagnosis of 03/14/2020 Right Shoulder. Date of Evaluation: 03/28/20 Physical Therapist: Liza Garcia DPT - Visit Plan Frequency: 2x /Week Duration: 4 Weeks Plan: Follow subscap protocol - Subjective Right shoulder has been bothering her for a long time- rehabbed the shoulder- had LEFT shoulder surgery in [place]- when she moved it froze- rehabbed that and its better- In June had a baby and picking him up aggravated the rigjt one. Had PT then got worse- saw , had MRI- no injections due to DM- so she opted to go in a clean it out. Surgery was Mar 14 subscap repair and biceps tenodesis. Right hand dominate. Sling with pillow since surgery except when showering and pendulums. Sleep: disturbed- sleeping in her bed but reclined. Saw MD on Thursday who is happy with progress and gave her more ambien. is with her this week and her mom is coming for another week so she has help. He is 9 months ago. Worst: 4/10 Agg: random pains. Eases: ice and sling Best: 0/10. Pain is along the whole shoulder and to the elbow. No Judd, blurred vision, dizziness. No neck pain- No N/T in the fingers. 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 Needs to get back to general use of the shoulder. PMHx/Meds: no changes. - Objective Posture: FH, RS- wearing a pillow sling on the right0 guarding of right s houlder. 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 Observation: incisions healing well no s/s of infection. ROM: Wrist/Hand: WNl Elbow: WNL with pain at end range flexion PROM only. Shoulder PROM: flexion:80 degrees, Abd: 90 degrees IR: to helly ER: neutral. No strength tested in shoulder due to protocol - Goals Goal 1:: Patient will be I with HEP and progression Goal Time Frame: 4-6 Weeks Goal 2:: Patient will demo full PROM/AAROM/AROM as per protcol Goal Time Frame: 4-6 Weeks Goal 3:: Patient will maintain proper posture t/o tx sesssion to demo increased scap s.s Goal Time Frame: 4-6 Weeks - Rehabilitation Potential Physical Therapy Diagnosis: Patient presents with hypomobility s/p right shoulder surgery- she has decreased ROM, strength and muscular endurance leading to guarded posture and increased pain/inability to perfrom ADL's Rehabilitation Potential: Good - Anticipated Interventions Patient/Client Instruction: Educate patient on: Benefits of Fitness Program Therapeutic Exercise to Include: Strength training, Endurance training, Body mechanics, Postural training, Passive ROM, Active ROM, Scapular Strength/Stabilization Comment: as per protocol For the Purpose of:: To improve muscle performance and motor function TENS: Yes Cryotherapy (ice pack, ice massage): Yes Thermo therapy (hot pack): Yes Ultrasound (thermal/non thermal): No Thank you for the opportunity to evaluate your patient. For Medicare and Medicare HMO plans, please review the plan of care and approve it. It will need to be FAXED BACK to us at [phone] for Medicare purposes. For Medicare only, by signing this I certify the plan of care. Please let me know if there are questions or concerns regarding this plan of care. Physician Signature: Date:
--- NOTE | 2020-04-23 10:54 | HP.PTREVAL ---
MAXIMILIANO Cedillo, It has been my pleasure to treat EYAL ORNELAS over the last 9 visits for 03/14/2020 Right Shoulder. Please see the progress note below for an update on the physical therapy plan of care! Subjective: Patient reports seeing PA after PT today- 6 weeks post op thursday. Patient reports that its more uncomfortable than anything but taking it out of the sling and pendulums, heating pad and biofreeze takes her to painfree. Wearing the sling continually except when he showered. No N/T in the hand- no WHEELER, blurred vision or dizziness. Feels that she is 0% better but 100% of where she expects to be in the recovery process. Objective/Function: Posture: FH, RS, increased kyphosis- increased guarding of the right UE with sling. Palpation: note tender. ROM: Shoulder PROM flexion:125 degrees Abd: 110 degrees, ER: 20 degrees, IR:50 degrees. Elbow: flexion/extn: WNL. Strength: not tested due to protocol Plan Plan: Continue through procotol 2-3x a week for 6 weeks. Goals Goal 1:: Patient will be I with HEP and progression Goal Time Frame: 4-6 Weeks Goal Progress: Progressing Goal 2:: Patient will demo full PROM/AAROM/AROM as per protcol Goal Time Frame: 4-6 Weeks Goal Progress: Progressing Goal 3:: Patient will maintain proper posture t/o tx sesssion to demo increased scap s.s Goal Time Frame: 4-6 Weeks Goal Progress: Progressing Anticipated Interventions Patient/Client Instruction: Educate patient on: Benefits of Fitness Program Therapeutic Exercise to Include: Strength training, Endurance training, Body mechanics, Postural training, Passive ROM, Active ROM, Scapular Strength/Stabilization Comment: as per protocol For the Purpose of:: To improve muscle performance and motor function TENS: Yes Cryotherapy (ice pack, ice massage): Yes Thermo therapy (hot pack): Yes Ultrasound (thermal/non thermal): No Please do not hesitate to contact me at [phone] by phone or if you have questions or concerns regarding this new plan of care! Sincerely, Liza Garcia DPT
--- NOTE | 2020-05-30 12:11 | HP.PTREVAL ---
MAXIMILIANO Cedillo, It has been my pleasure to treat EYAL ORNELAS over the last 19 visits for 03/14/2020 Right Shoulder. Please see the progress note below for an update on the physical therapy plan of care! Subjective: Patient reports that her shoulder is good- she is gaining ROM but its not there yet- the ROM behind the back is not as good as she wants it to be. The pain in the shoulder is more tired. At night if she sleeps on the left she will have throbbing pains in the right. She wants to be able to lift her kid with 2 hands, carry things, hook her bra in the back and sleep better. 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 Objective/Function: Posture: FH, RS, increased kyphosis- increased guarding of the right UE with sling. Palpation: note tender. ROM: Shoulder AROM flexion:125 degrees 110 Abduction. IR: outside pocket ER: 50 degrees Elbow: flexion/extn: WNL. Strength: Isometric at neutral: 4/5 Plan Plan: Continue through procotol 2-3x a week for 6 weeks. Goals Goal 1:: Patient will be I with HEP and progression Goal Time Frame: 4-6 Weeks Goal Progress: Progressing Goal 2:: Patient will demo full PROM/AAROM/AROM as per protcol Goal Time Frame: 4-6 Weeks Goal Progress: Progressing Goal 3:: Patient will maintain proper posture t/o tx sesssion to demo increased scap s.s Goal Time Frame: 4-6 Weeks Goal Progress: Progressing Anticipated Interventions Patient/Client Instruction: Educate patient on: Benefits of Fitness Program Therapeutic Exercise to Include: Strength training, Endurance training, Body mechanics, Postural training, Passive ROM, Active ROM, Scapular Strength/Stabilization Comment: as per protocol For the Purpose of:: To improve muscle performance and motor function TENS: Yes Cryotherapy (ice pack, ice massage): Yes Thermo therapy (hot pack): Yes Ultrasound (thermal/non thermal): No Please do not hesitate to contact me at [phone] by phone or if you have questions or concerns regarding this new plan of care! Sincerely, Liza Garcia DPT
--- NOTE | 2020-07-04 07:30 | HP.PTREVAL_ITS ---
MAXIMILIANO Cedillo, It has been my pleasure to treat EYAL ORNELAS over the last 26 visits for 03/14/2020 Right Shoulder. Please see the progress note below for an update on the physical therapy plan of care! Subjective: Patient reports that her shoulder is okay- she is still struggling to put her arm behind her back. Feels that she is better. She is sleeping on it more. She feels soreness when the weather changes. Worst pain in last week 0-2/10. 75% better- can put her hair up and it gets tired. She feels that she still needs PT. Objective/Function: Posture: FH, RS, increased kyphosis-can correct but does not maintain without VC's. Palpation: note tender. ROM: Shoulder AROM flexion:140 degrees without A- AAROM: 150 degrees 135 Abduction. IR: pocket ER: 50 degrees Elbow: flexion/extn: WNL. Strength: Isometric at neutral: 4+/5 Plan Plan: Continue through procotol 2-3x a week for 6 weeks. Goals Goal 1:: Patient will be I with HEP and progression Goal Time Frame: 4-6 Weeks Goal Progress: Progressing Goal 2:: Patient will demo full PROM/AAROM/AROM as per protcol Goal Time Frame: 4-6 Weeks Goal Progress: Progressing Goal 3:: Patient will maintain proper posture t/o tx sesssion to demo increased scap s.s Goal Time Frame: 4-6 Weeks Goal Progress: Progressing Anticipated Interventions Patient/Client Instruction: Educate patient on: Benefits of Fitness Program Therapeutic Exercise to Include: Strength training, Endurance training, Body mechanics, Postural training, Passive ROM, Active ROM, Scapular Strength/Stabilization Comment: as per protocol For the Purpose of:: To improve muscle performance and motor function TENS: Yes Cryotherapy (ice pack, ice massage): Yes Thermo therapy (hot pack): Yes Ultrasound (thermal/non thermal): No Please do not hesitate to contact me at [phone] by phone or Fax: if you have questions or concerns regarding this new plan of care! Sincerely, Liza Garcia DPT
--- NOTE | 2020-09-26 07:21 | HP.PTDCSUM ---
It has been my pleasure to treat EYAL ORNELAS referred by MAXIMILIANO Cedillo, with the diagnosis of 03/14/2020 Right Shoulder for a total of 40 visit(s). Discharge Date: Please see the following information for a summary of their discharge status. Subjective: Patient reports that the shoulder itself is stiff- once she gets moving its okay- is still uncomfortable to sleep on from time to time. She is tired of coming to therapy and feels good doing all her exercises at home. Is able to perform all ADL's. Worst: 2/10 Best: 0/10 most of the time. She still has some trouble with behind the back or at end of day. % Improvement: 85 Objective/Function: Posture: improved, able to maintain without verbal cues in a hard back chair- required verbal cues when sitting without a lumbar spine support. Palpation: note tender. ROM: Shoulder AROM flexion:170 degrees 165Abduction. IR: thumb to L2 ER: 50 degrees Elbow: flexion/extn: WNL. Strength:flexion/abduction at 90 degrees: 4/5 all other motions of the shoulder: 5/5. Elbow/Wrist/Hand: 5/5 Goal 1:: Patient will be I with HEP and progression Goal Progress: Goal Met Goal 2:: Patient will demo full PROM/AAROM/AROM as per protcol Goal Progress: Goal Met Goal 3:: Patient will maintain proper posture t/o tx sesssion to demo increased scap s.s Goal Progress: Goal Met Plan: Discharge to home exercise program. Encouraged her to call if she has any questions or concerns If there are questions or concerns regarding this patient's physical therapy, please feel free to call me at [phone]. Thank you for the referral of this patient. Sincerely, Liza Garcia DPT
== END 2020-09-26 10:51 | disposition home or self-care (01) ==
LOC: PT 07:00
PROVIDERS: PCP Internal Medicine; Referring Provider Physician Assistant; Visit Provider Physician Assistant
DX: Z47.89 Encounter for other orthopedic aftercare (principal)
CPT/HCPCS: 97014; 97110; 97140; 97162; 97164; G0283

== ENCOUNTER 2020-10-05 08:20 | Outpatient (RCR) | payer OTHER, SELFPAY ==
[2020-09-05 09:40] VITALS: BMI 46.3
== END 2020-12-11 23:59 ==
LOC: IMMUN 08:20
PROVIDERS: PCP Internal Medicine; Visit Provider Family Medicine
DX: Z23 Encounter for immunization (principal)
CPT/HCPCS: 0001A; 0002A; 91300

== ENCOUNTER → 2021-04-16 09:02 | Outpatient (CLI) | payer OTHER, SELFPAY ==
[2021-04-16 13:15] LABS: ALB/GLOB Ratio 0.9 RATIO (0.9-2.4); AST(SGOT) 11 U/L (15-37); Alanine Aminotransfer ALT/SGPT 21 U/L (13-56); Albumin, Serum 3.6 g/dL (3.2-5.0); Alkaline Phosphatase 72 U/L (45-117); Anion Gap 8 (5-15); BUN 15 mg/dL (7-18); BUN/Creat Ratio 16.9 RATIO (10-20); Calcium,Total 8.8 mg/dL (8.5-10.1); Chloride 104 mmol/L (98-107); Cholesterol 222 mg/dL (200); Creatinine, Serum 0.89 mg/dL (0.55-1.02); EST Glomerular Filtration Rate 75 mL/min (>60); Est Glom Filt Rate - Afr Amer 91 mL/min (>60); Globulin 3.9 g/dL (2.2-4.2); Glucose 175 mg/dL (74-106); High Density Lipoprotein 47 mg/dL; Potassium 4.2 mmol/L (3.5-5.1); Protein, Total 7.5 g/dL (6.4-8.2); Sodium Level 135 mmol/L (136-145); Thyroid Stim Hormone (TSH) 1.81 uIU/mL (0.358-3.74); Triglycerides 204 mg/dL; Very Low Density Lipoprotein 41 mg/dL (5-40)
[2021-04-16 15:37] LABS: Microalbumin,Random Urine < 5.0 mg/L (NO RANGE EST.)
== END ==
PROVIDERS: PCP Internal Medicine; Referring Provider Internal Medicine Endocrinology, Diabetes & Metabolism; Visit Provider Internal Medicine Endocrinology, Diabetes & Metabolism
DX: I10 Essential (primary) hypertension (principal); E11.9 Type 2 diabetes mellitus without complications; E78.1 Pure hyperglyceridemia; Z79.4 Long term (current) use of insulin
CPT/HCPCS: 36415; 80053; 80061; 82043; 82570; 84443

== ENCOUNTER 2021-07-17 10:26 | Outpatient (CLI) | payer OTHER, SELFPAY | END 2021-07-17 23:59 | disposition short-term general hospital (02) | LOC: LABSPEC 10:27 | PROVIDERS: PCP Internal Medicine; Referring Provider Physician Assistant; Visit Provider Physician Assistant | DX: Z11.52 Encounter for screening for COVID-19 (principal) | CPT/HCPCS: 87635; U0003; U0005 ==

== ENCOUNTER 2021-07-22 08:47 | Outpatient (CLI) | payer OTHER, SELFPAY | END 2021-07-22 23:59 | disposition short-term general hospital (02) | LOC: LABSPEC 08:48 | PROVIDERS: PCP Internal Medicine; Visit Provider Physician Assistant Surgical | DX: Z20.822 Contact with and (suspected) exposure to COVID-19 (principal) | CPT/HCPCS: 87635; U0003; U0005 ==